=== PATIENT | female | born 1950 | race Caucasian/White ===

== ENCOUNTER 2019-09-12 06:35 | Inpatient (IN) ==
--- NOTE | 2019-09-12 07:21 | Emergency Department Note ---
Lower Extremity Injury HPI General Chief Complaint: Extremity Injury, Lower Stated Complaint: Fall Time Seen by Provider: 09/12/19 06:55 Source: patient Mode of arrival: ambulatory Limitations: no limitations History of Present Illness HPI Narrative: Narrative: 69-year-old female comes in complaining of fall this morning. Has had a previous stroke and has some weakness on the left side. Anyways when she got up to feed her cat, she turned to pivot and her left leg did not want to move well and so she fell onto tile at her house. She was able to pull herself up to a chair but is having excruciating pain in her left hip. Also some pain at her left knee. Her was able to help her some and he brought her in. She denies any other injuries. She denies any recent illness including fever chills nausea vomiting diarrhea trouble urinating trouble breathing. She did not hit her head or lose consciousness. She is not on a blood thinner Related Data Home Medications Medication Instructions Recorded Confirmed ascorbate calcium (vitamin C) 500 1,500 mg PO QDAY tab 12/03/14 09/12/19 mg tablet aspirin 81 mg tablet,delayed 81 mg PO QDAY 12/03/14 09/12/19 release calcium carbonate 600 mg (1,500 1 cap PO DAILY 12/03/14 09/12/19 mg)-vitamin D3 500 unit capsule onabotulinumtoxinA IM 12/03/14 08/27/19 lichawnkdom-gcvrhmqfw-[id number]-hyal 1 tab PO DAILY 12/17/18 09/12/19 750 mg-100 mg-125 mg-1.65 mg tablet lactobacillus combination no.8 3 3,000 mmu cells PO QDAY 12/17/18 09/12/19 billion cell capsule losartan 50 mg tablet 25 mg PO QDAY tab 12/17/18 09/12/19 lutein 25 mg-zeaxanthin 5 mg 1 cap PO QDAY cap 12/17/18 09/12/19 capsule baclofen 20 mg PO .5X/DAY 09/12/19 09/12/19 fluticasone propionate [Flonase 2 spray INTRANASAL QDAY PRN 09/12/19 09/12/19 Allergy Relief] Previous Rx's Medication Instructions Recorded Sa[employer] Dynamic Orthosis #1 ea 10/11/17 massage therapy #6 each NS 10/24/17 triamterene 75 0.5 tab PO QDAY PRN #45 tab 09/24/18 mg-hydrochlorothiazide 50 mg tablet clopidogrel 75 mg tablet 75 mg PO QDAY #90 tab 03/11/19 venlafaxine 75 mg capsule,extended 75 mg PO QAM #90 cap 04/16/19 release 24 hr pantoprazole 40 mg tablet,delayed 40 mg PO QAM #90 tab 06/06/19 release rosuvastatin 5 mg tablet 5 mg PO .qod #45 tab 08/27/19 Allergies Allergy/AdvReac Type Severity Reaction Status Date / Time Penicillins Allergy Unknown As a child Verified 08/27/19 14:04 no intolerances AdvReac Unknown Other Uncoded 08/27/19 14:04 Review of Systems ROS ROS Narrative: Narrative: All systems ED: reviewed and negative except as stated. 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) Left spastic hemiparesis (Chronic) Cerebrovascular accident (CVA) (Chronic) LVH (left ventricular hypertrophy) (Chronic) Anxiety (Chronic) Fatigue (Chronic) Diverticulosis (Chronic) Colon adenoma (Chronic) Elevated CK (Chronic) Upper respiratory tract infection (Acute) Foot drop, left (Chronic) Dyspnea on exertion (Chronic) Weakness (Chronic) Stenosis of middle cerebral artery (Chronic) Spasticity (Chronic) Osteopenia (Chronic) Onychomycosis (Chronic 11/13/13) Muscle spasm (Chronic) Hypertension (Chronic) Hyperlipidemia (Chronic) Hernia, hiatal (Chronic) Hemiplegia as late effect of stroke (Chronic) Gastroesophageal reflux (Chronic) Gait abnormality (Chronic) Flexion contracture of joint of hand (Chronic) Fatty liver (Chronic) Elevated liver function tests (Chronic) Dysphagia (Chronic) Depression (Chronic) Cystocele (Chronic) Corns and callus (Chronic 11/13/13) Contracture of joint of hand (Chronic) Bronchitis (Chronic) Abnormal involuntary movement (Chronic) Medical History Abnormal involuntary movement (Chronic) tremors Achilles tendinitis (Resolved) Anxiety (Chronic) Bronchitis (Chronic) Cerebrovascular accident (CVA) (Chronic) 2010 anterior division of right middle cerebral artery Chest tightness (Resolved) Colon adenoma (Chronic) 01/22/16-5 year follow up Contracture of joint of hand (Chronic) Corns and callus (Chronic 11/13/13) Cystocele (Chronic) Depression (Chronic) Improved Diverticulosis (Chronic) Dysphagia (Chronic) Dyspnea on exertion (Chronic) Mild Elevated CK (Chronic) Elevated liver function tests (Chronic) Fatigue (Chronic) Fatty liver (Chronic) Chronic (non alcoholic) Flexion contracture of joint of hand (Chronic) Left Foot drop, left (Chronic) Gait abnormality (Chronic) Left leg weakness Gastroesophageal reflux (Chronic) Hemiplegia as late effect of stroke (Chronic) Left Hernia, hiatal (Chronic) sliding History of angiography (Resolved) 2010-Cerebral Hoarseness (Chronic) Progressing Hormone replacement therapy (HRT) (Resolved) Hyperlipidemia (Chronic) Severe. Cholesterol dropped from 313 to 170 on rosuvastatin 5 mg a day. Unfortunately she stopped it due to myalgias and muscle weakness in the legs. She is going to try 5 mg every other day. If she stays on that we will check lipid panel in 2 months. Hypertension (Chronic) BP target is a little higher than usual because of the right MCA stenosis. Systolic goal between 125 and 140. Patient monitors at home and is aware of her goal. She will let us know if systolic blood pressure consistently goes above 140 or below 125. Continue losartan 25 mg daily. Hypokalemia (Resolved) [facility] emergency room. Potassium 3.2. Left spastic hemiparesis (Chronic) LVH (left ventricular hypertrophy) (Chronic) Shown on coronary CTA 06/2015. Coronary arteries were otherwise normal Macrocytosis without anemia (Chronic) Muscle spasm (Chronic) LUE Neoplasm of skin (Resolved 03/12/14) Uncertain behavior - Dr Josue Onychomycosis (Chronic 11/13/13) Osteopenia (Chronic) Pneumonia (Resolved) Postmenopausal symptoms (Chronic) Dryness Right middle cerebral artery stroke (Chronic) 2010. Anterior division. Residual left-sided weakness and left upper extremity spasticity. Aspirin, Plavix, statin Systolic blood pressure control goal of 125-140 Spasticity (Chronic) LUE Botox every 3 months with neurology Baclofen 20 mg 6 times per day Statin myopathy (Chronic) Tolerating Crestor low-dose Stenosis of middle cerebral artery (Chronic) 2010- high grade stenosis of anterior division of right middle cerebral artery - angiogram [facility] Tachycardia (Chronic) Nocturnal Weakness (Chronic) 2010-left side post CVA. right lower extremity now seems weaker. Surgical History Abnormal colonoscopy (Resolved) 01/22/16-adenoma & kugzsvcvpua-aquk-kttm follow-up. H/O esophagogastroduodenoscopy (Resolved 09/13/11) two fundic gland polyps; actue esophagitis with up to 5 eosinophils and 10 neutophils; no glandular mucosa identified--gastric polyp; stricture; hiatal hernia History of adenoidectomy (Resolved) History of appendectomy (Resolved) History of breast biopsy (Resolved) Unspecified History of cholecystectomy (Resolved) History of reconstruction of anterior cruciate ligament tear (Resolved) Left History of surgical removal of skin lesion (Resolved 09/20/11) Seborrheic keratosis, pigmented type History of tonsillectomy (Resolved) S/P reduction mammoplasty (Resolved) 08/07/17 Dr [place]. Left side. S/P reduction mammoplasty (Resolved) Left side. Mastopexy right breast. S/P LALITO-BSO (Resolved) Family History Sister Asthma Mother Hypertension Father Malignant neoplasm of prostate Social History Smoking Status: Never smoker Alcohol Intake Frequency: a few times a month Substance Use: does not use Exam Narrative Narrative: Narrative: No acute distress resting comfortably. Normocephalic atraumatic. Conjunctive are clear sclerae white nonicteric. No dysarthria. Looking at her left hip area I do not see any acute abnormality. Palpation of her hip joint and iliac crest area shows mild tenderness. Some pain with active motion of that left hip. Left knee similarly appears normal but she does have some pain with palpation. She had does have sensation in her feet; I do not see any pedal edema. General Limitations: no limitations Course Vital Signs Vital signs: Vital Signs Temperature 97.8 F 09/12/19 06:36 Pulse Rate 103 H 09/12/19 06:36 Respiratory Rate 16 09/12/19 06:36 Blood Pressure 156/72 09/12/19 06:36 Pulse Oximetry (%) 96 09/12/19 06:36 Temperature 97.8 F 09/12/19 06:36 Pulse Rate 100 H 09/12/19 08:06 Respiratory Rate 16 09/12/19 06:36 Blood Pressure 136/67 09/12/19 08:06 Pulse Oximetry (%) 91 09/12/19 08:06 MDM MDM Narrative Medical decision making narrative: Narrative: Fall with injury to left knee and left hip. X-rays were ordered X-rays are negative. However she is having significant pain so Dilaudid and Zofran are ordered. CT scan of the left hip is ordered to further sort out her injury. At her request I also discussed the situation with her son Patient will be checked out to Dr. lewis at shift change. Radiology Data Radiology results reviewed: Yes I reviewed the patient's radiology results. Radiology results narrative: X-rays of the left hip and knee show no acute fracture or dislocation. CT is ordered of the left hip to further sort this out Discharge Plan Patient/Caregiver Discharge Instructions Pt seen by AGRONOMY RESEARCH MANAGER/PA only: No Clinical Impression: Acute pain of left hip, Fall, Acute pain of left knee Patient Disposition: Still a Patient Condition: Fair Follow up with: Leon Medley DO [Primary Care Provider] - Prescriptions: No Action (DME) [employer] Dynamic Orthosis Qty: 1 RF: 0 (DME) massage therapy Qty: 6 RF: 0 triamterene-hydrochlorothiazid 75-50 mg tablet 0.5 tab PO QDAY PRN (Reason: weight gain) Qty: 45 RF: 0 clopidogrel 75 mg tablet 75 mg PO QDAY Qty: 90 RF: 3 venlafaxine 75 mg capsule,extended release 24hr 75 mg PO QAM Qty: 90 RF: 3 pantoprazole 40 mg tablet,delayed release (DR/EC) 40 mg PO QAM Qty: 90 RF: 3 aspirin 81 mg tablet,delayed release (DR/EC) 81 mg PO QDAY RF: 0 ascorbate calcium (vitamin C) 500 mg tablet 1,500 mg PO QDAY RF: 0 Botox IM RF: 0 calcium carbonate-vitamin D3 600 mg(1,500mg) -500 unit capsule 1 cap PO DAILY RF: 0 losartan 50 mg tablet 25 mg PO QDAY RF: 0 Hold Instructions: Doctor's Order lactobacillus combination no.8 3 billion cell capsule 3 billion cell capsule 3,000 mmu cells PO QDAY RF: 0 Glucos Chond Cplx Advanced 750 mg-100 mg- 125 mg-1.65 mg tablet 1 tab PO DAILY RF: 0 lutein-zeaxanthin [Ocuvite Lutein 25] 25-5 mg capsule 1 cap PO QDAY RF: 0 rosuvastatin 5 mg tablet 5 mg PO .qod Qty: 45 RF: 3 baclofen 20 mg tablet 20 mg PO .5X/DAY RF: 0 fluticasone propionate [Flonase Allergy Relief] 50 mcg/actuation spray,suspension 2 spray INTRANASAL QDAY PRN (Reason: Allergy Symptoms) RF: 0
--- NOTE | 2019-09-12 07:58 | XRay Report ---
INDICATION: fall TECHNIQUE: AP pelvis. AP and lateral left hip COMPARISON: None. FINDINGS: Negative pelvis. No acute fracture. Sacrum and sacroiliac joints are unremarkable. There is degenerative disc disease in the lower lumbar spine. No detectable left hip fracture. Femoral head and neck are intact. If clinically indicated CT or MRI scan may be helpful for further evaluation. IMPRESSION: Negative left hip. See above discussion Interpreted and Authenticated by: Leon Mills 09/12/19
--- NOTE | 2019-09-12 07:59 | XRay Report ---
INDICATION: fall TECHNIQUE: AP and crosstable lateral left knee COMPARISON: None FINDINGS:Previous anterior cruciate ligament repair. No acute fracture. There is moderate degenerative disease in the left patellofemoral joint. Medial and lateral femoral tibial joint spaces are within normal limits. No plain film evidence for significant joint effusion. IMPRESSION: No acute fracture Interpreted and Authenticated by: Leon Mills 09/12/19
[2019-09-12] MEDS ORDERED: HYDROmorphone 0.5 MG/0.5 ML SYRINGE IV PRN ×3 (08:08→11:31)
[2019-09-12] MEDS ORDERED: ONDANSETRON 4 MG/2 ML VIAL IV ONE (08:08)
[2019-09-12 08:25] LABS: POC Blood Urea Nitrogen 14 mg/dl (8-23); POC CO2 25 mmol/L (22-30); POC Calcium, Ionized 1.17 mmol/L (1.16-1.32); POC Chloride 102 mmol/L (96-108); POC Creatinine 0.6 mg/dl (0.6-1.1); POC Glucose, Random 114 mg/dL (70-105); POC Potassium 3.4 mmol/L (3.3-5.1); POC Sodium 139 mmol/L (133-145)
[2019-09-12] MEDS ORDERED: ACETAMINOPHEN 325 MG TABLET PO ONE (08:28)
--- NOTE | 2019-09-12 08:47 | Cat Scan Report ---
INDICATION: fall TECHNIQUE: Thin section axial images of the left hip. Sagittal and coronal reformatted images COMPARISON: None. FINDINGS: Subtle nondisplaced left subcapital hip fracture. This is not well-visualized on plain film examination. There is no malalignment. Left acetabulum is negative. Intertrochanteric region of the left hip is negative. Left hemipelvis is negative. IMPRESSION: Nondisplaced left subcapital hip fracture Interpreted and Authenticated by: Leon Mills 09/12/19
--- NOTE | 2019-09-12 09:30 | Emergency Department Note ---
Lower Extremity Injury HPI General Chief Complaint: Extremity Injury, Lower Stated Complaint: Fall Time Seen by Provider: 09/12/19 06:55 Source: patient Mode of arrival: ambulatory Limitations: no limitations History of Present Illness HPI Narrative: Narrative: I took over care of this patient at [address] Geiger. Related Data Home Medications Medication Instructions Recorded Confirmed ascorbate calcium (vitamin C) 500 1,500 mg PO QDAY tab 12/03/14 09/12/19 mg tablet aspirin 81 mg tablet,delayed 81 mg PO QDAY 12/03/14 09/12/19 release calcium carbonate 600 mg (1,500 1 cap PO DAILY 12/03/14 09/12/19 mg)-vitamin D3 500 unit capsule onabotulinumtoxinA IM 12/03/14 08/27/19 [id number]-wabttnclv-[id number]-hyal 1 tab PO DAILY 12/17/18 09/12/19 750 mg-100 mg-125 mg-1.65 mg tablet lactobacillus combination no.8 3 3,000 mmu cells PO QDAY 12/17/18 09/12/19 billion cell capsule losartan 50 mg tablet 25 mg PO QDAY tab 12/17/18 09/12/19 lutein 25 mg-zeaxanthin 5 mg 1 cap PO QDAY cap 12/17/18 09/12/19 capsule baclofen 20 mg PO .5X/DAY 09/12/19 09/12/19 fluticasone propionate [Flonase 2 spray INTRANASAL QDAY PRN 09/12/19 09/12/19 Allergy Relief] Previous Rx's Medication Instructions Recorded SaeboReach Dynamic Orthosis #1 ea 10/11/17 massage therapy #6 each NS 10/24/17 triamterene 75 0.5 tab PO QDAY PRN #45 tab 09/24/18 mg-hydrochlorothiazide 50 mg tablet clopidogrel 75 mg tablet 75 mg PO QDAY #90 tab 03/11/19 venlafaxine 75 mg capsule,extended 75 mg PO QAM #90 cap 04/16/19 release 24 hr pantoprazole 40 mg tablet,delayed 40 mg PO QAM #90 tab 06/06/19 release rosuvastatin 5 mg tablet 5 mg PO .qod #45 tab 08/27/19 Allergies Allergy/AdvReac Type Severity Reaction Status Date / Time Penicillins Allergy Unknown As a child Verified 06/23/20 14:04 Review of Systems ROS ROS Narrative: Narrative: PFSH Narrative Patient History Narrative: Narrative: Medical/Surgical/Family History All Active Problems (Updated 09/12/19 @ 08:12 by Wing Geiger MD) Acute pain of left hip (Acute) Fall (Acute) Acute pain of left knee (Acute) Seborrheic keratoses (Chronic) Maxillary sinusitis, acute (Acute) Macrocytosis without anemia (Chronic) Wound drainage (Chronic) Postmenopausal symptoms (Chronic) Tachycardia (Chronic) Hoarseness (Chronic) 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) Left spastic hemiparesis (Chronic) Cerebrovascular accident (CVA) (Chronic) LVH (left ventricular hypertrophy) (Chronic) Anxiety (Chronic) Fatigue (Chronic) Diverticulosis (Chronic) Colon adenoma (Chronic) Elevated CK (Chronic) Upper respiratory tract infection (Acute) Foot drop, left (Chronic) Dyspnea on exertion (Chronic) Weakness (Chronic) Stenosis of middle cerebral artery (Chronic) Spasticity (Chronic) Osteopenia (Chronic) Onychomycosis (Chronic 11/13/13) Muscle spasm (Chronic) Hypertension (Chronic) Hyperlipidemia (Chronic) Hernia, hiatal (Chronic) Hemiplegia as late effect of stroke (Chronic) Gastroesophageal reflux (Chronic) Gait abnormality (Chronic) Flexion contracture of joint of hand (Chronic) Fatty liver (Chronic) Elevated liver function tests (Chronic) Dysphagia (Chronic) Depression (Chronic) Cystocele (Chronic) Corns and callus (Chronic 11/13/13) Contracture of joint of hand (Chronic) Bronchitis (Chronic) Abnormal involuntary movement (Chronic) Medical History Abnormal involuntary movement (Chronic) tremors Achilles tendinitis (Resolved) Anxiety (Chronic) Bronchitis (Chronic) Cerebrovascular accident (CVA) (Chronic) 2011 anterior division of right middle cerebral artery Chest tightness (Resolved) Colon adenoma (Chronic) 01/22/16-5 year follow up Contracture of joint of hand (Chronic) Corns and callus (Chronic 11/13/13) Cystocele (Chronic) Depression (Chronic) Improved Diverticulosis (Chronic) Dysphagia (Chronic) Dyspnea on exertion (Chronic) Mild Elevated CK (Chronic) Elevated liver function tests (Chronic) Fatigue (Chronic) Fatty liver (Chronic) Chronic (non alcoholic) Flexion contracture of joint of hand (Chronic) Left Foot drop, left (Chronic) Gait abnormality (Chronic) Left leg weakness Gastroesophageal reflux (Chronic) Hemiplegia as late effect of stroke (Chronic) Left Hernia, hiatal (Chronic) sliding History of angiography (Resolved) 2010-Cerebral Hoarseness (Chronic) Progressing Hormone replacement therapy (HRT) (Resolved) Hyperlipidemia (Chronic) Severe. Cholesterol dropped from 313 to 170 on rosuvastatin 5 mg a day. Unfortunately she stopped it due to myalgias and muscle weakness in the legs. She is going to try 5 mg every other day. If she stays on that we will check lipid panel in 2 months. Hypertension (Chronic) BP target is a little higher than usual because of the right MCA stenosis. Systolic goal between 125 and 140. Patient monitors at home and is aware of her goal. She will let us know if systolic blood pressure consistently goes above 140 or below 125. Continue losartan 25 mg daily. Hypokalemia (Resolved) [facility] emergency room. Potassium 3.2. Left spastic hemiparesis (Chronic) LVH (left ventricular hypertrophy) (Chronic) Shown on coronary CTA 06/2015. Coronary arteries were otherwise normal Macrocytosis without anemia (Chronic) Muscle spasm (Chronic) LUE Neoplasm of skin (Resolved 03/12/14) Uncertain behavior - Dr Josue Onychomycosis (Chronic 11/13/13) Osteopenia (Chronic) Pneumonia (Resolved) Postmenopausal symptoms (Chronic) Dryness Right middle cerebral artery stroke (Chronic) 2010. Anterior division. Residual left-sided weakness and left upper extremity spasticity. Aspirin, Plavix, statin Systolic blood pressure control goal of 125-140 Spasticity (Chronic) LUE Botox every 3 months with neurology Baclofen 20 mg 6 times per day Statin myopathy (Chronic) Tolerating Crestor low-dose Stenosis of middle cerebral artery (Chronic) 2010- high grade stenosis of anterior division of right middle cerebral artery - angiogram [facility] Tachycardia (Chronic) Nocturnal Weakness (Chronic) 2010-left side post CVA. right lower extremity now seems weaker. Surgical History Abnormal colonoscopy (Resolved) 01/22/16-adenoma & [id number]-yekj-envd follow-up. H/O esophagogastroduodenoscopy (Resolved 09/13/11) two fundic gland polyps; actue esophagitis with up to 5 eosinophils and 10 neutophils; no glandular mucosa identified--gastric polyp; stricture; hiatal hernia History of adenoidectomy (Resolved) History of appendectomy (Resolved) History of breast biopsy (Resolved) Unspecified History of cholecystectomy (Resolved) History of reconstruction of anterior cruciate ligament tear (Resolved) Left History of surgical removal of skin lesion (Resolved 09/20/11) Seborrheic keratosis, pigmented type History of tonsillectomy (Resolved) S/P reduction mammoplasty (Resolved) 08/07/17 Dr Phoenix. Left side. S/P reduction mammoplasty (Resolved) Left side. Mastopexy right breast. S/P LALITO-BSO (Resolved) Family History Sister Asthma Mother Hypertension Father Malignant neoplasm of prostate Social History Smoking Status: Never smoker Alcohol Intake Frequency: a few times a month Substance Use: does not use Exam Narrative Narrative: Narrative: General Limitations: no limitations Course Vital Signs Vital signs: Vital Signs Temperature 97.8 F 09/12/19 06:36 Pulse Rate 103 H 09/12/19 06:36 Respiratory Rate 16 09/12/19 06:36 Blood Pressure 156/72 09/12/19 06:36 Pulse Oximetry (%) 96 09/12/19 06:36 Temperature 97.8 F 09/12/19 11:11 Pulse Rate 96 H 09/12/19 11:11 Respiratory Rate 16 09/12/19 11:11 Blood Pressure 126/69 09/12/19 11:11 Pulse Oximetry (%) 93 09/12/19 11:11 MDM MDM Narrative Medical decision making narrative: Narrative: On CT scan this patient does have a nondisplaced subcapital femoral neck fracture. Dr. Martinez the patient's son has discussed this with his partner Dr. Sullivan who will do a pinning of this fracture. We will do preop work-up. I did speak with Dr. Rachel the hospitalist and he will admit the patient to the hospital. Lab Data Lab results reviewed: Yes I reviewed the patient's lab results. Result diagrams: 09/12/19 08:16 09/12/19 08:16 Labs: Lab Results 09/12/19 09/12/19 09/12/19 Range/Units 08:16 08:16 08:16 WBC 19.6 H (4.50-11.00) K/mcL RBC 3.98 (3.59-5.38) M/mcL Hgb 12.6 (11.2-15.7) g/dL Hct 39.3 (34.1-44.9) % POC Hct 41.0 (36.0-48.0) % MCV 98.7 (80.0-100.0) fL MCH 31.7 (26.0-34.0) pg MCHC 32.1 (31.0-36.0) g/dL RDW 14.3 (11.5-14.5) % Plt Count 387 (140-440) K/mcL MPV 9.6 (7.4-10.4) fL Gran % 90.3 H (38.0-78.0) % Lymph % (Auto) 3.9 L (15.5-49.0) % Rhea % (Auto) 5.7 (1.0-12.0) % Eos % (Auto) 0 (0.0-7.0) % Baso % (Auto) 0.1 (0.0-2.0) % Gran # 17.66 H (1.80-8.00) K/mcL Lymph # (Auto) 0.77 L (1.50-4.80) K/mcL Rhea # (Auto) 1.12 H (0.10-0.90) K/mcL Eos # (Auto) 0 (0.00-0.70) K/mcL Baso # (Auto) 0.02 (0.00-0.30) K/mcL PT 13.1 (11.9-14.5) sec INR 1.0 (0.9-1.1) POC Sodium 139 (133-145) mmol/L Sodium (133-145) mmol/L POC Potassium 3.4 (3.3-5.1) mmol/L Potassium (3.3-5.1) mmol/L POC Chloride 102 (96-108) mmol/L Chloride (96-108) mmol/L Carbon Dioxide (22-30) mmol/L POC Total CO2 25 (22-30) mmol/L Anion Gap (8-16) POC BUN 14 (8-23) mg/dl BUN (8-23) mg/dl Creatinine (0.6-1.1) mg/dl POC Creatinine 0.6 (0.6-1.1) mg/dl GFR Calculation Glucose (70-105) mg/dL POC Glucose 114 H (70-105) mg/dL Calcium (8.6-10.4) mg/dl POC WB Ioniz Calcium 1.17 (1.16-1.32) mmol/L Total Bilirubin (0.0-1.0) mg/dL AST (0-37) U/l ALT (0-40) U/l Alkaline Phosphatase (39-117) U/L Total Protein (5.9-8.4) gm/dL Albumin (3.2-5.2) gm/dL Globulin (2.2-3.7) gm/dL Albumin/Globulin Ratio (1.0-2.3) Urine Color Urine Appearance Urine pH (5.0-9.0) Ur Specific [place] (1.000-1.035) Urine Protein (NEG) mg/dL Urine Glucose (UA) (NEG) mg/dL Urine Ketones (NEG) mg/dL Urine Occult Blood (<0.03) mg/dL Urine Nitrate (NEG) Urine Bilirubin (NEG) mg/dL Urine Urobilinogen (NEG) mg/dL Ur Leukocyte Esterase (NEG) /uL Urine RBC (0-1) /hpf Urine WBC (0-4) /hpf Ur Squamous Epith Cells (0-4) /hpf Urine Bacteria (0) /hpf Ur Culture Indicated? COVID-19 PCR (NEGATIVE) 09/12/19 09/12/19 09/12/19 Range/Units 08:16 08:50 09:30 WBC (4.50-11.00) K/mcL RBC (3.59-5.38) M/mcL Hgb (11.2-15.7) g/dL Hct (34.1-44.9) % POC Hct (36.0-48.0) % MCV (80.0-100.0) fL MCH (26.0-34.0) pg MCHC (31.0-36.0) g/dL RDW (11.5-14.5) % Plt Count (140-440) K/mcL MPV (7.4-10.4) fL Gran % (38.0-78.0) % Lymph % (Auto) (15.5-49.0) % Rhea % (Auto) (1.0-12.0) % Eos % (Auto) (0.0-7.0) % Baso % (Auto) (0.0-2.0) % Gran # (1.80-8.00) K/mcL Lymph # (Auto) (1.50-4.80) K/mcL Rhea # (Auto) (0.10-0.90) K/mcL Eos # (Auto) (0.00-0.70) K/mcL Baso # (Auto) (0.00-0.30) K/mcL PT (11.9-14.5) sec INR (0.9-1.1) POC Sodium (133-145) mmol/L Sodium 139 (133-145) mmol/L POC Potassium (3.3-5.1) mmol/L Potassium 3.6 (3.3-5.1) mmol/L POC Chloride (96-108) mmol/L Chloride 102 (96-108) mmol/L Carbon Dioxide 24 (22-30) mmol/L POC Total CO2 (22-30) mmol/L Anion Gap 13.0 (8-16) POC BUN (8-23) mg/dl BUN 13 (8-23) mg/dl Creatinine 0.7 (0.6-1.1) mg/dl POC Creatinine (0.6-1.1) mg/dl GFR Calculation 90 Glucose 114 H (70-105) mg/dL POC Glucose (70-105) mg/dL Calcium 9.6 (8.6-10.4) mg/dl POC WB Ioniz Calcium (1.16-1.32) mmol/L Total Bilirubin 0.3 (0.0-1.0) mg/dL AST 21 (0-37) U/l ALT 28 (0-40) U/l Alkaline Phosphatase 72 (39-117) U/L Total Protein 7.1 (5.9-8.4) gm/dL Albumin 4.7 (3.2-5.2) gm/dL Globulin 2.4 (2.2-3.7) gm/dL Albumin/Globulin Ratio 2.0 (1.0-2.3) Urine Color Straw Urine Appearance Clear Urine pH 7.0 (5.0-9.0) Ur Specific [place] 1.006 (1.000-1.035) Urine Protein Neg (NEG) mg/dL Urine Glucose (UA) Negative (NEG) mg/dL Urine Ketones Neg (NEG) mg/dL Urine Occult Blood Neg (<0.03) mg/dL Urine Nitrate Neg (NEG) Urine Bilirubin Neg (NEG) mg/dL Urine Urobilinogen Neg (NEG) mg/dL Ur Leukocyte Esterase Neg (NEG) /uL Urine RBC < 1 (0-1) /hpf Urine WBC 1 (0-4) /hpf Ur Squamous Epith Cells 0 (0-4) /hpf Urine Bacteria 0 (0) /hpf Ur Culture Indicated? No COVID-19 PCR Covid-19 negative (NEGATIVE) Radiology Data Radiology results reviewed: Yes I reviewed the patient's radiology results. Discharge Plan Patient/Caregiver Discharge Instructions Pt seen by [facility]IER/PA only: No Clinical Impression: Acute pain of left hip, Fall, Acute pain of left knee Patient Disposition: Xfer As Inpt ([facility]) Condition: Fair Discharge Date/Time: 09/12/19 11:00
[2019-09-12 09:38] LABS: Basophils # (Auto) 0.02 K/mcL (0.00-0.30); Basophils % (Auto) 0.1 % (0.0-2.0); Eosinophils # (Auto) 0 K/mcL (0.00-0.70); Eosinophils % (Auto) 0 % (0.0-7.0); Granulocytes % (Auto) 90.3 % (38.0-78.0); Hematocrit 39.3 % (34.1-44.9); Hemoglobin 12.6 g/dL (11.2-15.7); Lymphocytes # (Auto) 0.77 K/mcL (1.50-4.80); Lymphocytes % (Auto) 3.9 % (15.5-49.0); Mean Cell Volume 98.7 fL (80.0-100.0); Mean Corpuscular HGB Conc 32.1 g/dL (31.0-36.0); Mean Platelet Volume 9.6 fL (7.4-10.4); Monocytes # (Auto) 1.12 K/mcL (0.10-0.90); Monocytes % (Auto) 5.7 % (1.0-12.0); Platelet Count 387 K/mcL (140-440); RBC 3.98 M/mcL (3.59-5.38); Red Cell Distribution Width 14.3 % (11.5-14.5); WBC 19.6 K/mcL (4.50-11.00)
--- NOTE | 2019-09-12 09:38 | XRay Report ---
INDICATION: pre surgery TECHNIQUE: AP portable upright chest x-ray COMPARISON: Previous examination dated 06/29/2017 FINDINGS: Lungs:Lungs are negative. No focal pulmonary parenchymal infiltrate or mass Heart, vascular:No significant cardiomegaly. Pulmonary vascularity is normal. No pulmonary edema or pulmonary congestion Mediastinum, bobo:No mediastinal widening. No hilar mass Pleura:No pleural fluid. No pleural-based mass or calcification Skeletal:Negative. IMPRESSION: Negative AP portable chest x-ray Interpreted and Authenticated by: Leon Mills 09/12/19
[2019-09-12 09:44] LABS: Prothrombin Time 13.1 sec (11.9-14.5)
[2019-09-12 09:44] LABS: Appearance,Urine CLEAR; Bacteria,Urine 0 /hpf (0); Bilirubin,Urine NEG (NEG); Color,Urine STRAW; Culture Indicated,Urine NO; Glucose,Urine (UA) NEGATIVE (NEG); Ketones,Urine NEG (NEG); Leukocyte Esterase,Urine NEG /uL (NEG); Nitrate,Urine NEG (NEG); Protein,Urine NEG (NEG); Specific Gravity,Urine 1.006 (1.000-1.035); Urine Blood NEG mg/dL (<0.03); Urine RBC < 1 /hpf (0-1); Urine Squamous Epithelial Cell 0 /hpf (0-4); Urine WBC 1 /hpf (0-4); Urobilinogen,Urine NEG (NEG)
[2019-09-12 09:45] LABS: ALT/SGPT 28 U/l (0-40); AST/SGOT 21 U/l (0-37); Albumin 4.7 gm/dL (3.2-5.2); Alkaline Phosphatase 72 U/L (39-117); Bilirubin,Total 0.3 mg/dL (0.0-1.0); Blood Urea Nitrogen 13 mg/dl (8-23); Calcium 9.6 mg/dl (8.6-10.4); Carbon Dioxide 24 mmol/L (22-30); Chloride 102 mmol/L (96-108); Globulin 2.4 gm/dL (2.2-3.7); Glomerular Filtration Rate 90; Glucose 114 mg/dL (70-105)
--- NOTE | 2019-09-12 10:27 | Internal Med History&Physical ---
HPI History of Present Illness Patient information: Note initiated : 09/12/19 at 10:27 am Service Date, if different from initiated Date: [] Patient: Rika Martinez a 69 y/o F admitted on for Fall. Chief Complaint: [] History of present illness: Ms. Martinez is a 69 year old F with a known history of left-sided hemiparesis right MCA CVA/hypertension/HLD who presents to the ER following a fall 3 in the morning when she tripped on tile surface sustaining injury to her left hip. Initial work-up in the ER was consistent with left subcapital hip fracture. Orthopedics was consulted. Hospital service was requested for admission and management of medical issues while patient will undergo operative intervention At the time of evaluation patient is alert and oriented. She denies active distress. Pain well controlled. She denies losing consciousness or lightheadedness dizziness prior to fall. She denies recent hospitalization. She is currently on aspirin Plavix for history of an right MCA CVA 9 years ago with residual deficits left side. She denies diarrhea, fever, chest pain, shortness of breath or recent bleeding. She follows up with PCP Leon Zhou Review of systems 10 point review system was performed and is negative except for ones dicussed above [facility] Medical History Abnormal involuntary movement (Chronic) tremors Achilles tendinitis (Resolved) Anxiety (Chronic) Bronchitis (Chronic) Cerebrovascular accident (CVA) (Chronic) 2010 anterior division of right middle cerebral artery Chest tightness (Resolved) Colon adenoma (Chronic) 01/22/16-5 year follow up Contracture of joint of hand (Chronic) Corns and callus (Chronic 11/13/13) Cystocele (Chronic) Depression (Chronic) Improved Diverticulosis (Chronic) Dysphagia (Chronic) Dyspnea on exertion (Chronic) Mild Elevated CK (Chronic) Elevated liver function tests (Chronic) Fatigue (Chronic) Fatty liver (Chronic) Chronic (non alcoholic) Flexion contracture of joint of hand (Chronic) Left Foot drop, left (Chronic) Gait abnormality (Chronic) Left leg weakness Gastroesophageal reflux (Chronic) Hemiplegia as late effect of stroke (Chronic) Left Hernia, hiatal (Chronic) sliding History of angiography (Resolved) 2010-Cerebral Hoarseness (Chronic) Progressing Hormone replacement therapy (HRT) (Resolved) Hyperlipidemia (Chronic) Severe. Cholesterol dropped from 313 to 170 on rosuvastatin 5 mg a day. Unfortunately she stopped it due to myalgias and muscle weakness in the legs. She is going to try 5 mg every other day. If she stays on that we will check lipid panel in 2 months. Hypertension (Chronic) BP target is a little higher than usual because of the right MCA stenosis. Systolic goal between 125 and 140. Patient monitors at home and is aware of her goal. She will let us know if systolic blood pressure consistently goes above 140 or below 125. Continue losartan 25 mg daily. Hypokalemia (Resolved) [facility] emergency room. Potassium 3.2. Left spastic hemiparesis (Chronic) LVH (left ventricular hypertrophy) (Chronic) Shown on coronary CTA 06/2015. Coronary arteries were otherwise normal Macrocytosis without anemia (Chronic) Muscle spasm (Chronic) LUE Neoplasm of skin (Resolved 03/12/14) Uncertain behavior - Dr Josue Onychomycosis (Chronic 11/13/13) Osteopenia (Chronic) Pneumonia (Resolved) Postmenopausal symptoms (Chronic) Dryness Right middle cerebral artery stroke (Chronic) 2010. Anterior division. Residual left-sided weakness and left upper extremity spasticity. Aspirin, Plavix, statin Systolic blood pressure control goal of 125-140 Spasticity (Chronic) LUE Botox every 3 months with neurology Baclofen 20 mg 6 times per day Statin myopathy (Chronic) Tolerating Crestor low-dose Stenosis of middle cerebral artery (Chronic) 2010- high grade stenosis of anterior division of right middle cerebral artery - angiogram [facility] Tachycardia (Chronic) Nocturnal Weakness (Chronic) 2010-left side post CVA. right lower extremity now seems weaker. Surgical History Abnormal colonoscopy (Resolved) 01/22/16-adenoma & iijaotowrtv-onfn-tjuj follow-up. H/O esophagogastroduodenoscopy (Resolved 09/13/11) two fundic gland polyps; actue esophagitis with up to 5 eosinophils and 10 neutophils; no glandular mucosa identified--gastric polyp; stricture; hiatal hernia History of adenoidectomy (Resolved) History of appendectomy (Resolved) History of breast biopsy (Resolved) Unspecified History of cholecystectomy (Resolved) History of reconstruction of anterior cruciate ligament tear (Resolved) Left History of surgical removal of skin lesion (Resolved 09/20/11) Seborrheic keratosis, pigmented type History of tonsillectomy (Resolved) S/P reduction mammoplasty (Resolved) 08/07/17 Dr Phoenix. Left side. S/P reduction mammoplasty (Resolved) Left side. Mastopexy right breast. S/P LALITO-BSO (Resolved) Family History Sister Asthma Mother Hypertension Father Malignant neoplasm of prostate Social History household members: spouse housing: house lives independently: Yes marital status: education level: college occupational status: retired occupation: teacher other: children 3; grandchildren 2 smoking status: Never smoker alcohol intake frequency: a few times a month substance use type: does not use MEDS/ALLERGIES Home Medications and Allergies Home Medications Medication Instructions Recorded Confirmed Type ascorbate calcium (vitamin C) 500 1,500 mg PO QDAY tab 12/03/14 09/12/19 History mg tablet aspirin 81 mg tablet,delayed 81 mg PO QDAY 12/03/14 09/12/19 History release calcium carbonate 600 mg (1,500 1 cap PO DAILY 12/03/14 09/12/19 History mg)-vitamin D3 500 unit capsule onabotulinumtoxinA IM 12/03/14 08/27/19 History triamterene 75 0.5 tab PO QDAY PRN #45 tab 09/24/18 09/12/19 Rx mg-hydrochlorothiazide 50 mg tablet [id number]-[id number]-[id number]-hyal 1 tab PO DAILY 12/17/18 09/12/19 History 750 mg-100 mg-125 mg-1.65 mg tablet lactobacillus combination no.8 3 3,000 mmu cells PO QDAY 12/17/18 09/12/19 History billion cell capsule losartan 50 mg tablet 25 mg PO QDAY tab 12/17/18 09/12/19 History lutein 25 mg-zeaxanthin 5 mg 1 cap PO QDAY cap 12/17/18 09/12/19 History capsule clopidogrel 75 mg tablet 75 mg PO QDAY #90 tab 03/11/19 09/12/19 Rx venlafaxine 75 mg capsule,extended 75 mg PO QAM #90 cap 04/16/19 09/12/19 Rx release 24 hr pantoprazole 40 mg tablet,delayed 40 mg PO QAM #90 tab 06/06/19 09/12/19 Rx release rosuvastatin 5 mg tablet 5 mg PO .qod #45 tab 08/27/19 09/12/19 Rx baclofen 20 mg PO .5X/DAY 09/12/19 09/12/19 History fluticasone propionate [Flonase 2 spray INTRANASAL QDAY PRN 09/12/19 09/12/19 History Allergy Relief] Allergies Allergy/AdvReac Type Severity Reaction Status Date / Time Penicillins Allergy Unknown As a child Verified 08/27/19 14:04 EXAM Constitutional Vitals: Temp Pulse Resp BP Pulse Ox 97.8 F 100 H 16 125/66 92 09/12/19 06:36 09/12/19 10:15 09/12/19 06:36 09/12/19 10:15 09/12/19 10:15 Alert oriented Head normocephalic Oral cavity dry Eye movement symmetrical No ear nose discharge Neck lymphadenopathy S1-S2 regular rhythm Nonlabored breathing Nondistended abdomen No lymphedema cyanosis clubbing Tenderness left hip on passive range of motion Psych alert cooperative Skin no suspicious lesion Neuro no acute changes, persistent left-sided deficits, normal higher function DATA Data Completed and Pending Labs on day of discharge: Labs from last 24 hours 09/12/19 09/12/19 09/12/19 09:30 08:50 08:16 WBC RBC Hgb Hct POC Hct MCV MCH MCHC RDW Plt Count MPV Gran % Lymph % (Auto) [place] % (Auto) Eos % (Auto) Baso % (Auto) Gran # Lymph # (Auto) [place] # (Auto) Eos # (Auto) Baso # (Auto) PT INR POC Sodium Sodium 139 POC Potassium Potassium 3.6 POC Chloride Chloride 102 Carbon Dioxide 24 POC Total CO2 Anion Gap 13.0 POC BUN BUN 13 Creatinine 0.7 POC Creatinine GFR Calculation 90 Glucose 114 H POC Glucose Calcium 9.6 POC WB Ioniz Calcium Total Bilirubin 0.3 AST 21 ALT 28 Alkaline Phosphatase 72 Total Protein 7.1 Albumin 4.7 Globulin 2.4 Albumin/Globulin Ratio 2.0 Urine Color Straw Urine Appearance Clear Urine pH 7.0 Ur Specific Gill 1.006 Urine Protein Neg Urine Glucose (UA) Negative Urine Ketones Neg Urine Occult Blood Neg Urine Nitrate Neg Urine Bilirubin Neg Urine Urobilinogen Neg Ur Leukocyte Esterase Neg Urine RBC < 1 Urine WBC 1 Ur Squamous Epith Cells 0 Urine Bacteria 0 Ur Culture Indicated? No COVID-19 PCR Pending 09/12/19 09/12/19 09/12/19 08:16 08:16 08:16 WBC 19.6 H RBC 3.98 Hgb 12.6 Hct 39.3 POC Hct 41.0 MCV 98.7 MCH 31.7 MCHC 32.1 RDW 14.3 Plt Count 387 MPV 9.6 Gran % 90.3 H Lymph % (Auto) 3.9 L [place] % (Auto) 5.7 Eos % (Auto) 0 Baso % (Auto) 0.1 Gran # 17.66 H Lymph # (Auto) 0.77 L [place] # (Auto) 1.12 H Eos # (Auto) 0 Baso # (Auto) 0.02 PT 13.1 INR 1.0 POC Sodium 139 Sodium POC Potassium 3.4 Potassium POC Chloride 102 Chloride Carbon Dioxide POC Total CO2 25 Anion Gap POC BUN 14 BUN Creatinine POC Creatinine 0.6 GFR Calculation Glucose POC Glucose 114 H Calcium POC WB Ioniz Calcium 1.17 Total Bilirubin AST ALT Alkaline Phosphatase Total Protein Albumin Globulin Albumin/Globulin Ratio Urine Color Urine Appearance Urine pH Ur Specific Gill Urine Protein Urine Glucose (UA) Urine Ketones Urine Occult Blood Urine Nitrate Urine Bilirubin Urine Urobilinogen Ur Leukocyte Esterase Urine RBC Urine WBC Ur Squamous Epith Cells Urine Bacteria Ur Culture Indicated? COVID-19 PCR A/P Narrative A/P Narrative: * Left hip fracture-orthopedics on board. Continue pain management/keep n.p.o. anticipate surgery later today * Preoperative risk evaluation- Based on [employer] [place] heart association risk stratification patient would be in the high risk category in the setting of prior CVA however there are no modifiable risk factors. Patient is on aspirin Plavix which will be held at this time. She however does not carry history of CAD/CHF/renal failure or insulin-dependent diabetes. Patient would be a great candidate for postoperative rehab. Risk may include intraoperative and immediate postoperative ACS/CVA. I recommend maintaining a map greater than 70 during intraoperative phase and use of capnometry and IS to minimize pulmonary compilations. Additionally surgery and anesthesia specific risks will be addressed by respective care providers during their preoperative evaluations. Patient and family expresses understanding of above risks going into surgery. * History of CVA hold aspirin Plavix for 24 hours. To minimize risk of bleeding * History of left-sided weakness/spasm continue baclofen * Anxiety disorder continue venlafaxine * History of hypertension restart triamterene thiazide, hold ARB until systolics over 140 * GERD continue PPI * Full code Plan * Inpatient admission * Orthopedic consult * Hold aspirin Plavix for 24 hours * Keep n.p.o./pain management * Pre-existing medical condition management home meds except for ARB/aspirin Plavix which will be held for 24 hours * PT OT/nutrition support postoperative Time Spent With Patient Time: Total time spent is greater than 50% in coordination of care (as documented) at patient's floor/unit and/or counseling patient:
[2019-09-12] MEDS ORDERED: ACETAMINOPHEN 650 MG/65 ML BOTTLE IV PRN (11:31)
[2019-09-12] MEDS ORDERED: ONDANSETRON 4 MG ODT TABLET SL PRN (11:31)
[2019-09-12] MEDS ORDERED: FLUTICASONE PROPIONATE SPRAY.NAS NS PRN (11:31)
[2019-09-12] MEDS ORDERED: ONDANSETRON 4 MG/2 ML VIAL IV PRN ×2 (11:31→14:59)
[2019-09-12] MEDS ORDERED: POTASSIUM CHLORIDE 20 MEQ PACKET PO PRN (11:31)
[2019-09-12] MEDS ORDERED: MELATONIN 3 MG TABLET PO PRN (11:31)
[2019-09-12] MEDS ORDERED: BISACODYL 10 MG SUPP.RECT PR PRN (11:31)
[2019-09-12] MEDS ORDERED: MAGNESIUM SULFATE 2 GM/50 ML BAG IV PRN (11:31)
[2019-09-12] MEDS ORDERED: POLYETHYLENE GLYCOL 3350 17 GM PACKET PO PRN (11:31)
[2019-09-12] MEDS ORDERED: TRIAMTERENE/HYDROCHLOROTHIAZID 1 CAP CAPSULE PO PRN (11:44)
[2019-09-12] MEDS ORDERED: SCOPOLAMINE 1 PATCH PATCH TOPICAL PRN (12:00)
[2019-09-12] MEDS ORDERED: SCOPOLAMINE 1 PATCH PATCH TOPICAL ONE (12:16)
[2019-09-12] MEDS ORDERED: VANCOMYCIN 1,000 MG in 0.9 % SODIUM CHLORIDE 250 ML IV SCH (12:45)
[2019-09-12] MEDS ORDERED: VANCOMYCIN 1,500 MG in 0.9 % SODIUM CHLORIDE 500 ML IV SCH (13:00)
[2019-09-12] MEDS ORDERED: ceFAZolin 2 GM in DEXTROSE 5% IN WATER 50 ML IV SCH ×2 (13:15→14:30)
[2019-09-12] MEDS ORDERED: ONDANSETRON 4 MG/2 ML VIAL ONE (13:18)
[2019-09-12] MEDS ORDERED: fentaNYL 100 MCG/2 ML VIAL IV ONE (13:18)
[2019-09-12] MEDS ORDERED: PROPOFOL 200 MG/20 ML VIAL IV ONE (13:18)
[2019-09-12] MEDS ORDERED: KETAMINE HCL 50 MG/ML ML ONE (13:18)
[2019-09-12] MEDS ORDERED: FUROSEMIDE 20 MG/2 ML VIAL IV ONE (13:18)
[2019-09-12] MEDS ORDERED: DEXAMETHASONE 10 MG/ML VIAL ONE (13:18)
[2019-09-12] MEDS ORDERED: ROCURONIUM 10 MG/ML ML IV ONE (13:18)
[2019-09-12] MEDS ORDERED: ePHEDrine 50 MG/ML AMPUL IV ONE (13:18)
[2019-09-12] MEDS ORDERED: PHENYLEPHRINE 10 MG/ML VIAL ONE (13:18)
[2019-09-12] MEDS ORDERED: LIDOCAINE HCL/PF 100 MG/5 ML SYRINGE IV ONE (13:18)
[2019-09-12] MEDS ORDERED: ROPIVACAINE HCL/PF 20 ML VIAL IJ ONE (14:14)
[2019-09-12] MEDS ORDERED: BENZOCAINE/MENTHOL 1 LOZENGE PO PRN (14:23)
--- NOTE | 2019-09-12 14:23 | Brief Operative Note ---
Brief Operative Note Date of procedure: 09/12/19 Pre-op diagnosis: Left nondisplaced subcapital femoral neck fracture Post-op diagnosis: same Procedure: Left hip percutaneous screw fixation of subcapital femoral neck fracture Grafts/Implants: Yes (3 6.5 canulated screws) Anesthesia: GETA Findings: nondisplaced subcapital femoral neck fracture Complications: none Surgeon: Cyril Sullivan Estimated blood loss (cc): 75 Specimens Removed/Pathology: none sent Condition: stable Disposition: PACU
--- NOTE | 2019-09-12 14:46 | Operative Note ---
DATE OF OPERATION: 09/12/2019 PREOPERATIVE DIAGNOSIS: Left hip closed, nondisplaced subcapital femoral neck fracture. POSTOPERATIVE DIAGNOSIS: Left hip closed, nondisplaced subcapital femoral neck fracture. PROCEDURE PERFORMED: Percutaneous screw fixation of the left closed subcapital femoral neck fracture with three 6.5 mm cannulated screws. SURGEON: Cyril Sullivan M.D. STRIP ROLLER: None. ANESTHESIA: General. DRAINS: None. SPECIMENS: None. COMPLICATIONS: None. BLOOD LOSS: 75 mL. POSTOPERATIVE CONDITION: Stable. INDICATIONS FOR SURGERY: This is a 69-year-old female who does have significant history of left-sided hemiparesis status post CVA, who fell early this morning, had severe pain and inability to bear weight. She was taken to the ER. X-rays taken did not show obvious fracture. However, CT scan was obtained which did show a nondisplaced subcapital femoral neck fracture. FINDINGS AT SURGERY: A nondisplaced subcapital femoral neck fracture. Post screw fixation showed satisfactory fracture alignment and hardware in good position. PROCEDURE IN DETAIL: The patient had been seen preoperatively and informed consent had been obtained after discussion of risks and benefits of surgery. Risks including, but not limited to, bleeding; infection; injury to nerves, blood vessels, and other surrounding structures; anesthetic risks; nonunion or malunion of the fracture; failure of hardware fixation; possibility of needing further surgery such as conversion to total hip arthroplasty. She understood these risks and wished to proceed. Correct operative site was marked and then patient was taken to the operating room. General anesthesia was induced. She was carefully positioned onto the fracture table and then the left lower extremity was placed in some gentle traction with internal rotation. The right lower extremity was flexed and abducted and carefully padded. We then brought in fluoroscopy to verify fracture was still aligned well, which it was, so we went ahead and prepped and draped the left hip and lower extremity in normal sterile fashion. Timeout was performed verifying patient name, operative site, and plan. [place] shower curtain drape was placed. Fluoro was brought in to identify our starting point, and a stab incision was made with a scalpel. I used a tonsil down onto bone, and then using fluoroscopic guidance, placed a guide pin for the 6.5 cannulated screws. Careful attention was made to make sure we started not below the lesser trochanter, and this was placed central on the lateral view and along the inferior neck on the AP view. Once we liked our first pin position, I then used the JiaThis drill guide to place a proximal posterior and a proximal anterior guide pin. Once I liked the position of all three guide pins, we then depth-gauged and measured our screw lengths and then drilled the cortex and then placed the three screws. We did get reasonably good fixation with all three screws. I then backed the guide pins back at three different lengths and then took AP and lateral final x-ray images which were saved and printed. We then irrigated copiously with saline after removing the guide pins, and then 2-0 Monocryl was used for subcutaneous and jay for skin. Local anesthetic was injected and then Xeroform and sterile dressing were applied. The patient was then awakened, extubated, and transferred to recovery in satisfactory condition. BJB:leora Job ID: [id number] Doc ID: [id number] Cyril Sullivan MD
--- NOTE | 2019-09-12 14:52 | XRay Report ---
INDICATION: Left hip percutaneous pinning TECHNIQUE: 0.9 minutes fluoroscopy utilized by Dr. Sullivan. 11.7 mGy exposure. Spot films were obtained. FINDINGS: Spot films demonstrate 3 cancellous screws within the left femoral head and neck IMPRESSION: 1. Intraoperative fluoroscopy and spot films 2. Pinning of left hip for treatment of acute subcapital fracture Interpreted and Authenticated by: Leon Mills 09/12/19
[2019-09-12] MEDS ORDERED: MEPERIDINE 25 MG/ML SYRINGE IV PRN (14:59)
[2019-09-12] MEDS ORDERED: ATROPINE SULFATE 0.4 MG/ML VIAL IV PRN (14:59)
[2019-09-12] MEDS ORDERED: NALOXONE HCL 0.4 MG/ML VIAL IV PRN (14:59)
[2019-09-12] MEDS ORDERED: diphenhydrAMINE 50 MG/ML VIAL IV PRN (14:59)
[2019-09-12] MEDS ORDERED: PROMETHAZINE 25 MG/ML VIAL IV PRN (14:59)
[2019-09-12] MEDS ORDERED: ePHEDrine 50 MG/ML AMPUL IV PRN (14:59)
[2019-09-12] MEDS ORDERED: fentaNYL 100 MCG/2 ML VIAL IV PRN (14:59)
[2019-09-12] MEDS ORDERED: METOPROLOL TARTRATE 5 MG/5 ML VIAL IV PRN (14:59)
[2019-09-12] MEDS ORDERED: METHOCARBAMOL 1,000 MG/10 ML VIAL IV PRN (14:59)
[2019-09-12] MEDS ORDERED: ACETAMINOPHEN 1,000 MG/100 ML BOTTLE IV ONE (14:59)
[2019-09-12] MEDS ORDERED: IPRATROPIUM/ALBUTEROL 3 ML AMPUL.NEB NEB PRN (14:59)
--- NOTE | 2019-09-12 15:07 | Consultation ---
DATE OF CONSULTATION: 09/12/2019 REASON FOR CONSULTATION: Left nondisplaced subcapital femoral neck fracture. REQUESTING PHYSICIAN: Sam Geller M.D. CONSULTING PHYSICIAN: Cyril Sullivan M.D. HISTORY: This is a 69-year-old female with a history of left-sided hemiparesis from stroke who sustained a fall earlier this morning injuring her left hip. She was unable to bear weight and was taken to the emergency department. X-rays were taken which did not show obvious fracture, so a CT scan was performed which showed a nondisplaced subcapital femoral neck fracture. She denies any other associated injuries. She finds her pain made worse with movement, better with immobility. PAST MEDICAL HISTORY: Cerebrovascular accident in 2010 with resulting left-sided hemiparesis. She also has gastroesophageal reflux with hiatal hernia, hyperlipidemia, hypertension, left ventricular hypertrophy. PAST SURGICAL HISTORY: Colonoscopies, EGDs, appendectomy, breast biopsy, cholecystectomy, anterior cruciate ligament reconstruction, tonsillectomy with adenoidectomy, reduction mammoplasties, and total abdominal hysterectomy with BSO. MEDICATIONS: 1. Aspirin 81 mg a day. 2. Triamterene-hydrochlorothiazide 75-50 mg. 3. Losartan 25 mg every day. 4. Plavix 75 mg a day. 5. Venlafaxine 75 mg a day. 6. Pantoprazole 40 mg a day. 7. Rosuvastatin 5 mg a day. 8. Baclofen 20 mg half a day. 9. Flonase inhaler. ALLERGIES: PENICILLIN as a child, unknown. SOCIAL HISTORY: She is and lives with her . She is a retired teacher. No tobacco use. Occasional alcohol use. No illicit drug use. FAMILY HISTORY: Positive for mother with hypertension, father with prostate cancer, and a sister with asthma. REVIEW OF SYSTEMS: Negative except per the HPI. PHYSICAL EXAMINATION: VITAL SIGNS ON ADMISSION: Temperature 97.8, pulse 100, respirations 16, blood pressure 125/66, pulse ox 92%. GENERAL: She appears her stated age in no acute distress. She is oriented to person and place. Mood and affect are appropriate. EXTREMITIES: Bilateral upper extremities and bilateral lower extremities show no obvious deformity on inspection other than the left hand is held in a contracted manner. The right-sided upper and lower extremities are normal to range of motion, stability, and strength. The left side is decreased range of motion of both upper and lower extremity with significant pain with range of motion of the left hip. There is no gross instability noted on the left upper or lower extremity and strength is hemiparetic on that side. Skin is intact but there is some ecchymosis just distal to the greater trochanter on the left hip. Pulse is palpable. IMAGING: Her x-ray reviewed shows no obvious fracture. Her CT scan reviewed does show a nondisplaced subcapital femoral neck fracture. IMPRESSION: Left closed nondisplaced subcapital femoral neck fracture in a 69-year-old female who does have a left-sided hemiparesis from a stroke. PLAN: I recommend proceeding with percutaneous screw fixation of the left closed subcapital nondisplaced femoral neck fracture. We will do this as soon as possible. BJEliezer:leora Job ID: [id number] Doc ID: [id number] Cyril Sullivan MD
[2019-09-12] MEDS: BACLOFEN 10 MG TABLET PO SCH ×3 (16:34→20:46)
[2019-09-12] MEDS: 0.9 % SODIUM CHLORIDE 10 ML SYRINGE IV SCH ×3 (16:34→20:49)
[2019-09-12] MEDS: 0.9 % SODIUM CHLORIDE 1,000 ML IV SCH ×2 (16:34→17:08)
[2019-09-12] MEDS: ceFAZolin 1 GM VIAL IV SCH (20:46)
[2019-09-12] MEDS: SIMVASTATIN 20 MG TABLET PO SCH (20:47)
[2019-09-12] MEDS: DOCUSATE SODIUM 100 MG CAPSULE PO SCH (20:48)
[2019-09-12] MEDS: SENNOSIDES/DOCUSATE SODIUM 1 TAB TABLET PO SCH (20:49)
[2019-09-13] MEDS: 0.9 % SODIUM CHLORIDE 1,000 ML IV SCH ×4 (02:11→11:31)
[2019-09-13] MEDS: 0.9 % SODIUM CHLORIDE 10 ML SYRINGE IV SCH ×6 (04:26→21:28)
[2019-09-13] MEDS: ceFAZolin 1 GM VIAL IV SCH (04:26)
[2019-09-13] MEDS: BACLOFEN 10 MG TABLET PO SCH ×5 (07:11→21:23)
[2019-09-13] MEDS: PANTOPRAZOLE 40 MG TABLET PO SCH (07:11)
[2019-09-13 07:17] LABS: Hematocrit 33.2 % (34.1-44.9); Hemoglobin 10.2 g/dL (11.2-15.7); Mean Cell Volume 102.5 fL (80.0-100.0); Mean Corpuscular HGB Conc 30.7 g/dL (31.0-36.0); Mean Platelet Volume 9.6 fL (7.4-10.4); Platelet Count 337 K/mcL (140-440); RBC 3.24 M/mcL (3.59-5.38); Red Cell Distribution Width 15.1 % (11.5-14.5); WBC 10.5 K/mcL (4.50-11.00)
[2019-09-13 07:40] LABS: ALT/SGPT 19 U/l (0-40); AST/SGOT 18 U/l (0-37); Albumin 3.8 gm/dL (3.2-5.2); Albumin/Globulin Ratio 1.8 (1.0-2.3); Alkaline Phosphatase 56 U/L (39-117); Bilirubin,Direct < 0.2 mg/dL (0.0-0.3); Bilirubin,Total 0.2 mg/dL (0.0-1.0); Blood Urea Nitrogen 15 mg/dl (8-23); Calcium 8.4 mg/dl (8.6-10.4); Carbon Dioxide 23 mmol/L (22-30); Chloride 103 mmol/L (96-108); Globulin 2.1 gm/dL (2.2-3.7); Glomerular Filtration Rate 90; Glucose 108 mg/dL (70-105); Lactate Dehydrogenase 242 U/L (94-250); Phosphorous 3.4 mg/dL (2.7-4.5); Triglycerides 89 mg/dl (<150); Uric Acid 4.3 mg/dL (2.5-8.0)
[2019-09-13 08:45] LABS: Anisocytosis 1+ (NONE SEEN); Lymphocytes % 12 % (15-49); Macrocytosis 1+ (NONE SEEN); Monocytes % (Manual) 7 % (1-12); Platelet Estimate NORMAL (NORMAL); RBC Morphology NORMAL (NORMAL); Segmented Neutrophils % 81 % (38-78)
[2019-09-13] MEDS: ASCORBIC ACID 500 MG TABLET PO SCH (09:54)
[2019-09-13] MEDS: CALCIUM W/VIT D3 500 MG TABLET PO SCH (09:55)
[2019-09-13] MEDS: MULTIVIT,THER IRON,CA,FA & MIN 1 TABLET PO SCH (09:55)
[2019-09-13] MEDS: LACTOBACILLUS 1 CAPSULE PO SCH (09:56)
[2019-09-13] MEDS: VENLAFAXINE 75 MG CAP.XL.24H PO SCH (09:56)
[2019-09-13] MEDS: LOSARTAN 25 MG TABLET PO SCH (09:57)
--- NOTE | 2019-09-13 10:12 | Internal Med Progress Note ---
SUBJECTIVE Subjective Patient information: Note initiated : 09/13/19 at 10:12 am Service Date, if different from initiated Date: [] Patient: Rika Martinez 69 y/o F admitted on 09/12/19 for Fall. Chief Complaint: [] Interval history: Narrative: Constitutional Vitals: Vital Signs Temp Pulse Resp BP Pulse Ox 98.4 F 96 H 16 118/64 95 09/13/19 08:00 09/13/19 08:00 09/13/19 08:00 09/13/19 08:00 09/13/19 08:00 Period Temp Pulse Resp BP Sys/Lozano Pulse Ox Last 24 Hr 97.8 F-99 F 85-107 12-21 102-151/56-93 92-100 Intake and Output 09/12/19 09/13/19 09/13/19 21:59 05:59 13:59 Intake Total 1150 1148 Output Total 1601 1650 Balance -451 -502 Weight 86.976 kg Intake & Output: Intake & Output 09/12/19 09/13/19 09/13/19 21:59 05:59 13:59 Intake Total 1150 1148 Output Total 1601 1650 Balance -451 -502 Weight 86.976 kg Intake: IV 150 908 Sodium Chloride 0.9% 1,000 ml @ 908 100 mls/hr IV .Q10H [facility] Rx#: [id number] Ancef 2 gm In Dextrose 5% in 50 Water 50 ml @ 100 mls/hr IV PREOP [facility] Rx#:[id number] Oral 240 IV - Manual Only 1000 Output: Void Amount 1550 1650 # of times incontinent of urine 1 Estimated Blood Loss 50 Other: Urine Appearance Clear Clear Urine Color Pale Pale Urine Odor Normal Normal OBJ DATA Labs CBC & Chem 7: 09/13/19 05:20 09/13/19 05:20 Labs: Abnormal Lab Results 09/13/19 09/13/19 09/12/19 05:20 05:20 08:16 WBC RBC 3.24 L Hgb 10.2 L Hct 33.2 L MCV 102.5 H MCHC 30.7 L RDW 15.1 H Gran % Lymph % (Auto) Gran # Lymph # (Auto) [place] # (Auto) Seg Neutrophils % 81 H Lymphocytes % 12 L Anisocytosis 1+ A Macrocytosis 1+ A Glucose 108 H 114 H POC Glucose Calcium 8.4 L Globulin 2.1 L 09/12/19 09/12/19 08:16 08:16 WBC 19.6 H RBC Hgb Hct MCV MCHC RDW Gran % 90.3 H Lymph % (Auto) 3.9 L Gran # 17.66 H Lymph # (Auto) 0.77 L [place] # (Auto) 1.12 H Seg Neutrophils % Lymphocytes % Anisocytosis Macrocytosis Glucose POC Glucose 114 H Calcium Globulin Meds: Medications Acetaminophen (Tylenol) 650 mg PO Q4-6HP PRN; Protocol PRN Reason: Per Pain Protocol/Fever > 101 Ascorbic Acid (Vitamin C) 1,500 mg PO QDAY [facility] Last Admin: 09/13/19 09:54 Dose: 1,500 mg Documented by: Baclofen (Lioresal) 20 mg PO 5XD [facility] Last Admin: 09/13/19 07:11 Dose: 20 mg Documented by: Bisacodyl (Dulcolax) 10 mg VA Q2-3DAYS PRN PRN Reason: Constipation Calcium/Vitamin D (Calcium W/Vit D3) 500 mg PO DAILY [facility] Last Admin: 09/13/19 09:55 Dose: 500 mg Documented by: Docusate Sodium (Colace) 100 mg PO BID [facility] Last Admin: 09/12/19 20:48 Dose: Not Given Documented by: Fluticasone Propionate (Flonase) 2 spray NS QDAY PRN PRN Reason: Allergy Symptoms Hydromorphone HCl (Dilaudid) 0 mg IV Q4HP PRN; Protocol PRN Reason: Per Pain Protocol Magnesium Sulfate (Magnesium Sulfate) 2 gm in 50 mls @ 50 mls/hr IV UD PRN PRN Reason: MG = or < 1.7 Sodium Chloride (Sodium Chloride 0.9%) 1,000 mls @ 50 mls/hr IV .Q20H [facility] Stop: 09/14/19 23:30 Last Admin: 09/12/19 16:34 Dose: Not Given Documented by: Acetaminophen (Ofirmev) 650 mg in 65 mls @ 130 mls/hr IV Q6HP PRN; Protocol PRN Reason: Per Pain Protocol/Fever > 101 Last Admin: 09/12/19 22:12 Dose: 130 mls/hr Documented by: Sodium Chloride (Sodium Chloride 0.9%) 1,000 mls @ 100 mls/hr IV .Q10H [facility] Last Admin: 09/13/19 02:13 Dose: 100 mls/hr Documented by: Iron Carb/Multivit/[place]/Folic Acid (Multivitamin W/Minerals) 1 tab PO DAILY [facility] Last Admin: 09/13/19 09:55 Dose: 1 tab Documented by: Lactobacillus Rhamnosus (Culturelle) 1 cap PO QDAY [facility] Last Admin: 09/13/19 09:56 Dose: 1 cap Documented by: Losartan Potassium (Cozaar) 25 mg PO DAILY [facility] Last Admin: 09/13/19 09:57 Dose: 25 mg Documented by: Melatonin (Melatonin 3mg Tablet) 3 mg PO HSP PRN PRN Reason: Insomnia Ondansetron HCl (Zofran Odt) 4 mg SL Q4-6HP PRN; Protocol PRN Reason: Nausea And Vomiting Ondansetron HCl (Zofran) 4 mg IV Q4-6HP PRN; Protocol PRN Reason: Nausea And Vomiting Oxycodone/Acetaminophen (Percocet 5-325 Mg) 0 tab PO Q4HP PRN; Protocol PRN Reason: Per Pain Protocol Pantoprazole Sodium (Protonix) 40 mg PO QAMAC [facility] Last Admin: 09/13/19 07:11 Dose: 40 mg Documented by: Polyethylene Glycol (Miralax) 17 gm PO DAILYP PRN PRN Reason: Constipation Potassium Chloride (Klor-Con) 40 meq PO DAILYP PRN PRN Reason: K+ < 3.5 Scopolamine (Transderm-Scop) 1 patch TOPICAL PREOP PRN PRN Reason: Nausea And Vomiting Senna/Docusate Sodium (Senna Plus Tablet) 1 tab PO HS [facility] Last Admin: 09/12/19 20:49 Dose: Not Given Documented by: Simvastatin (Zocor) 20 mg PO Q48@2100 [facility] Last Admin: 09/12/19 20:47 Dose: 20 mg Documented by: Sodium Chloride (Saline Flush) 10 ml IV Q8 [facility] Last Admin: 09/13/19 04:26 Dose: 10 ml Documented by: Sodium Chloride (Saline Flush) 10 ml IV Q12 [facility] Last Admin: 09/12/19 20:47 Dose: 10 ml Documented by: Throat Lozenges (Cepacol) 1 lozenge PO PRN PRN PRN Reason: Sore Throat Last Admin: 09/12/19 22:12 Dose: 1 lozenge Documented by: Triamterene/HCTZ (Maxzide 25) 1 cap PO DAILYP PRN PRN Reason: weight gain Venlafaxine HCl (E[facility] Xr) [facility] Last Admin: 09/13/19 09:56 Dose: 75 mg Documented by: A/P Time Spent With Patient Time: Total time spent is greater than 50% in coordination of care (as documented) at patient's floor/unit and/or counseling patient: QUALITY VTE Deep Vein Thrombosis/Pulmonary Embolism Present on Admission: No
--- NOTE | 2019-09-13 10:19 | Internal Med Progress Note ---
SUBJECTIVE Subjective Patient information: Note initiated : 09/13/19 at 10:14 am Service Date, if different from initiated Date: [] Patient: Rika Martinez a 69 y/o F admitted on 09/12/19 for Fall. Chief Complaint: [] Interval history: Narrative: History of present illness: Ms. Martinez is a 69 year old F with a known history of left-sided hemiparesis right MCA CVA/hypertension/HLD who presents to the ER following a fall 3 in the morning when she tripped on tile surface sustaining injury to her left hip. Initial work-up in the ER was consistent with left subcapital hip fracture. Orthopedics was consulted. Hospital service was requested for admission and management of medical issues while patient will undergo operative intervention At the time of evaluation patient is alert and oriented. She denies active distress. Pain well controlled. She denies losing consciousness or lightheadedness dizziness prior to fall. She denies recent hospitalization. She is currently on aspirin Plavix for history of an right MCA CVA 9 years ago with residual deficits left side. She denies diarrhea, fever, chest pain, shortness of breath or recent bleeding. She follows up with PCP Leon Zhou 09/12-patient doing well. No overnight events. No concerns per staff. No fever chills nausea vomiting. Pain good control. No significant postoperative site swelling. Hemoglobin stable at 10.2. Restart aspirin Plavix today. Constitutional Vitals: Vital Signs Temp Pulse Resp BP Pulse Ox 98.4 F 96 H 16 118/64 95 09/13/19 08:00 09/13/19 08:00 09/13/19 08:00 09/13/19 08:00 09/13/19 08:00 Period Temp Pulse Resp BP Sys/Lozano Pulse Ox Last 24 Hr 97.8 F-99 F 85-107 12-21 102-151/56-93 92-100 Intake and Output 09/12/19 09/13/19 09/13/19 21:59 05:59 13:59 Intake Total 1150 1148 Output Total 1601 1650 Balance -451 -502 Weight 86.976 kg Alert oriented no anxiety Nonlabored breathing No evident pallor Intake & Output: Intake & Output 09/12/19 09/13/19 09/13/19 21:59 05:59 13:59 Intake Total 1150 1148 Output Total 1601 1650 Balance -451 -502 Weight 86.976 kg Intake: IV 150 908 Sodium Chloride 0.9% 1,000 ml @ 908 100 mls/hr IV .Q10H [facility] Rx#: [id number] Ancef 2 gm In Dextrose 5% in 50 Water 50 ml @ 100 mls/hr IV PREOP [facility] Rx#:[id number] Oral 240 IV - Manual Only 1000 Output: Void Amount 1550 1650 # of times incontinent of urine 1 Estimated Blood Loss 50 Other: Urine Appearance Clear Clear Urine Color Pale Pale Urine Odor Normal Normal OBJ DATA Labs CBC & Chem 7: 09/13/19 05:20 09/13/19 05:20 Labs: Abnormal Lab Results 09/13/19 09/13/19 09/12/19 05:20 05:20 08:16 WBC RBC 3.24 L Hgb 10.2 L Hct 33.2 L MCV 102.5 H MCHC 30.7 L RDW 15.1 H Gran % Lymph % (Auto) Gran # Lymph # (Auto) [place] # (Auto) Seg Neutrophils % 81 H Lymphocytes % 12 L Anisocytosis 1+ A Macrocytosis 1+ A Glucose 108 H 114 H POC Glucose Calcium 8.4 L Globulin 2.1 L 09/12/19 09/12/19 08:16 08:16 WBC 19.6 H RBC Hgb Hct MCV MCHC RDW Gran % 90.3 H Lymph % (Auto) 3.9 L Gran # 17.66 H Lymph # (Auto) 0.77 L [place] # (Auto) 1.12 H Seg Neutrophils % Lymphocytes % Anisocytosis Macrocytosis Glucose POC Glucose 114 H Calcium Globulin Meds: Medications Acetaminophen (Tylenol) 650 mg PO Q4-6HP PRN; Protocol PRN Reason: Per Pain Protocol/Fever > 101 Ascorbic Acid (Vitamin C) 1,500 mg PO QDAY [facility] Last Admin: 09/13/19 09:54 Dose: 1,500 mg Documented by: Baclofen (Lioresal) 20 mg PO 5XD [facility] Last Admin: 09/13/19 07:11 Dose: 20 mg Documented by: Bisacodyl (Dulcolax) 10 mg HI Q2-3DAYS PRN PRN Reason: Constipation Calcium/Vitamin D (Calcium W/Vit D3) 500 mg PO DAILY [facility] Last Admin: 09/13/19 09:55 Dose: 500 mg Documented by: Docusate Sodium (Colace) 100 mg PO BID [facility] Last Admin: 09/12/19 20:48 Dose: Not Given Documented by: Fluticasone Propionate (Flonase) 2 spray NS QDAY PRN PRN Reason: Allergy Symptoms Hydromorphone HCl (Dilaudid) 0 mg IV Q4HP PRN; Protocol PRN Reason: Per Pain Protocol Magnesium Sulfate (Magnesium Sulfate) 2 gm in 50 mls @ 50 mls/hr IV UD PRN PRN Reason: MG = or < 1.7 Sodium Chloride (Sodium Chloride 0.9%) 1,000 mls @ 50 mls/hr IV .Q20H [facility] Stop: 09/14/19 23:30 Last Admin: 09/12/19 16:34 Dose: Not Given Documented by: Acetaminophen (Ofirmev) 650 mg in 65 mls @ 130 mls/hr IV Q6HP PRN; Protocol PRN Reason: Per Pain Protocol/Fever > 101 Last Admin: 09/12/19 22:12 Dose: 130 mls/hr Documented by: Sodium Chloride (Sodium Chloride 0.9%) 1,000 mls @ 100 mls/hr IV .Q10H [facility] Last Admin: 09/13/19 02:13 Dose: 100 mls/hr Documented by: Iron Carb/Multivit/[place]/Folic Acid (Multivitamin W/Minerals) 1 tab PO DAILY [facility] Last Admin: 09/13/19 09:55 Dose: 1 tab Documented by: Lactobacillus Rhamnosus (Culturelle) 1 cap PO QDAY [facility] Last Admin: 09/13/19 09:56 Dose: 1 cap Documented by: Losartan Potassium (Cozaar) 25 mg PO DAILY [facility] Last Admin: 09/13/19 09:57 Dose: 25 mg Documented by: Melatonin (Melatonin 3mg Tablet) 3 mg PO HSP PRN PRN Reason: Insomnia Ondansetron HCl (Zofran Odt) 4 mg SL Q4-6HP PRN; Protocol PRN Reason: Nausea And Vomiting Ondansetron HCl (Zofran) 4 mg IV Q4-6HP PRN; Protocol PRN Reason: Nausea And Vomiting Oxycodone/Acetaminophen (Percocet 5-325 Mg) 0 tab PO Q4HP PRN; Protocol PRN Reason: Per Pain Protocol Pantoprazole Sodium (Protonix) 40 mg PO QAMAC [facility] Last Admin: 09/13/19 07:11 Dose: 40 mg Documented by: Polyethylene Glycol (Miralax) 17 gm PO DAILYP PRN PRN Reason: Constipation Potassium Chloride (Klor-Con) 40 meq PO DAILYP PRN PRN Reason: K+ < 3.5 Scopolamine (Transderm-Scop) 1 patch TOPICAL PREOP PRN PRN Reason: Nausea And Vomiting Senna/Docusate Sodium (Senna Plus Tablet) 1 tab PO HS [facility] Last Admin: 09/12/19 20:49 Dose: Not Given Documented by: Simvastatin (Zocor) 20 mg PO Q48@2100 [facility] Last Admin: 09/12/19 20:47 Dose: 20 mg Documented by: Sodium Chloride (Saline Flush) 10 ml IV Q8 [facility] Last Admin: 09/13/19 04:26 Dose: 10 ml Documented by: Sodium Chloride (Saline Flush) 10 ml IV Q12 [facility] Last Admin: 09/12/19 20:47 Dose: 10 ml Documented by: Throat Lozenges (Cepacol) 1 lozenge PO PRN PRN PRN Reason: Sore Throat Last Admin: 09/12/19 22:12 Dose: 1 lozenge Documented by: Triamterene/HCTZ (Maxzide 25) 1 cap PO DAILYP PRN PRN Reason: weight gain Venlafaxine HCl (Effexor Xr) 75 mg PO QAM [facility] Last Admin: 09/13/19 09:56 Dose: 75 mg Documented by: A/P Narrative A/P Narrative: * Left hip fracture-postop day 1 managed by orthopedics * Postop pain well controlled * History of CVA restart aspirin Plavix * Recurrent left upper extremity spasm following CVA continue baclofen * Anxiety disorder continue venlafaxine * History of hypertension continue triamterene thiazide, restart ARB * GERD continue PPI * Full code Plan * Restart aspirin Plavix antihypertensives * Postop PT OT * Pre-existing medical condition management home meds except for ARB/aspirin Plavix which will be held for 24 hours * Case management coordinate SNF transfer Time Spent With Patient Time: Total time spent is greater than 50% in coordination of care (as documented) at patient's floor/unit and/or counseling patient: QUALITY VTE Deep Vein Thrombosis/Pulmonary Embolism Present on Admission: No
--- NOTE | 2019-09-13 10:43 | Discharge Summary ---
Discharge Provider Provider Patient information: Note initiated : 09/13/19 at 10:40 am Service Date, if different from initiated Date: [] Patient: Rika Martinez 69 y/o F admitted on 09/12/19 for Fall. Chief Complaint: [hip pain] 69 y/o F fell injured left hip. Unable to bear weight, went to ER and CT showed nondisplaced subcapital femoral neck fracture. Date of admission: 09/12/19 10:59 Discharge date: 09/13/19 Primary care physician: Leon Medley DO Consults: 09/12/19 Consult to Physician [CONS] Stat Comment: Consulting Provider: Del Cavanaugh Reason For Exam: Physician to Consult Consult to Physician [CONS] Stat Comment: Consulting Provider: Cyril Sullivan Reason For Exam: Physician to Consult COURSE Hospital Course Discharge diagnosis: femoral neck fracture Time Spent with Patient Time attestation: Total time spent providing and/or coordinating discharge services: Physical Examination Exam Clean and dry: Yes Weight bearing status: as tolerated DC Instructions-General Patient Instructions Dressing Care: May shower in 2 days and Aquacel Ag - leave on for 5 days (Place POD#2) Discharge Plan Patient/Caregiver Discharge Instructions Activity: increase activity as tolerated Diet: Regular Diet Prescriptions: New oxycodone-acetaminophen 5-325 mg Tablet 1 tab PO Q4HP PRN (Reason: Per Pain Protocol) Qty: 60 RF: 0 No Action triamterene-hydrochlorothiazid 75-50 mg tablet 0.5 tab PO QDAY PRN (Reason: weight gain) Qty: 45 RF: 0 clopidogrel 75 mg tablet 75 mg PO QDAY Qty: 90 RF: 3 venlafaxine 75 mg capsule,extended release 24hr 75 mg PO QAM Qty: 90 RF: 3 pantoprazole 40 mg tablet,delayed release (DR/EC) 40 mg PO QAM Qty: 90 RF: 3 aspirin 81 mg tablet,delayed release (DR/EC) 81 mg PO QDAY RF: 0 ascorbate calcium (vitamin C) 500 mg tablet 1,500 mg PO QDAY RF: 0 Botox IM RF: 0 calcium carbonate-vitamin D3 600 mg(1,500mg) -500 unit capsule 1 cap PO DAILY RF: 0 losartan 50 mg tablet 25 mg PO QDAY RF: 0 Hold Instructions: Doctor's Order lactobacillus combination no.8 3 billion cell capsule 3 billion cell capsule 3,000 mmu cells PO QDAY RF: 0 Glucos Chond Cplx Advanced 750 mg-100 mg- 125 mg-1.65 mg tablet 1 tab PO DAILY RF: 0 lutein-zeaxanthin [Ocuvite Lutein 25] 25-5 mg capsule 1 cap PO QDAY RF: 0 rosuvastatin 5 mg tablet 5 mg PO .qod Qty: 45 RF: 3 baclofen 20 mg tablet 20 mg PO .5X/DAY RF: 0 fluticasone propionate [Flonase Allergy Relief] 50 mcg/actuation spray,suspension 2 spray INTRANASAL QDAY PRN (Reason: Allergy Symptoms) RF: 0 Other Ambulatory Orders: Physical Therapy DC - General (Routine) Location: None Selected Ordered By: Cyril Sullivan Shower Seat/Bench Discharge order (ONCE) Location: None Selected Ordered By: Cyril Sullivan Follow Up Plan Follow up with: Leon Medley DO [Primary Care Provider] - Cyril Sullivan MD [Physician] - Patient Disposition: Home, Self-Care Prognosis: Fair Rehab Potential: Fair Discharge Orders: Discharge Order (Routine); Ordered 09/13/19 Ordered By: Cyril Sullivan Pending Pending Pending: Resuscitation Status Full Code Diet Regular Diet Start MonSep 11 1425 Ascorbic Acid (Vitamin C) 1,500 mg PO QDAY [facility] Last Admin: 09/13/19 09:54 Dose: 1,500 mg Documented by: COLLIN Baclofen (Lioresal) 20 mg PO 5XD [facility] Last Admin: 09/13/19 07:11 Dose: 20 mg Documented by: Admin: 09/12/19 20:46 Dose: 20 mg Documented by: Admin: 09/12/19 16:37 Dose: 20 mg Documented by: Admin: 09/12/19 16:34 Dose: Not Given Documented by: WILLIAM Calcium/Vitamin D (Calcium W/Vit D3) 500 mg PO DAILY [facility] Last Admin: 09/13/19 09:55 Dose: 500 mg Documented by: COLLIN Docusate Sodium (Colace) 100 mg PO BID [facility] Last Admin: 09/12/19 20:48 Dose: Not Given Documented by: ETTA Sodium Chloride (Sodium Chloride 0.9%) 1,000 mls @ 50 mls/hr IV .Q20H [facility] Stop: 09/14/19 23:30 Last Admin: 09/12/19 16:34 Dose: Not Given Documented by: WILLIAM Acetaminophen (Ofirmev) 650 mg in 65 mls @ 130 mls/hr IV Q6HP PRN; Protocol PRN Reason: Per Pain Protocol/Fever > 101 Last Admin: 09/12/19 22:12 Dose: 130 mls/hr Documented by: ETTA Sodium Chloride (Sodium Chloride 0.9%) 1,000 mls @ 100 mls/hr IV .Q10H [facility] Last Admin: 09/13/19 02:13 Dose: 100 mls/hr Documented by: Infusion: 09/13/19 02:13 Dose: 100 mls/hr Documented by: Admin: 09/12/19 17:08 Dose: 100 mls/hr Documented by: WILLIAM Iron Carb/Multivit/Oxly/Folic Acid (Multivitamin W/Minerals) 1 tab PO DAILY [facility] Last Admin: 09/13/19 09:55 Dose: 1 tab Documented by: COLLIN Lactobacillus Rhamnosus (Culturelle) 1 cap PO QDAY [facility] Last Admin: 09/13/19 09:56 Dose: 1 cap Documented by: COLLIN Losartan Potassium (Cozaar) 25 mg PO DAILY [facility] Last Admin: 09/13/19 09:57 Dose: 25 mg Documented by: COLLIN Pantoprazole Sodium (Protonix) 40 mg PO QAMAC [facility] Last Admin: 09/13/19 07:11 Dose: 40 mg Documented by: COLLIN Senna/Docusate Sodium (Senna Plus Tablet) 1 tab PO HS [facility] Last Admin: 09/12/19 20:49 Dose: Not Given Documented by: ETTA Simvastatin (Zocor) 20 mg PO Q48@2100 [facility] Last Admin: 09/12/19 20:47 Dose: 20 mg Documented by: ETTA Sodium Chloride (Saline Flush) 10 ml IV Q8 [facility] Last Admin: 09/13/19 04:26 Dose: 10 ml Documented by: Admin: 09/12/19 20:49 Dose: Not Given Documented by: Admin: 09/12/19 16:34 Dose: Not Given Documented by: SHILDERBRA Sodium Chloride (Saline Flush) 10 ml IV Q12 [facility] Last Admin: 09/12/19 20:47 Dose: 10 ml Documented by: ETTA Throat Lozenges (Cepacol) 1 lozenge PO PRN PRN PRN Reason: Sore Throat Last Admin: 09/12/19 22:12 Dose: 1 lozenge Documented by: ETTA Venlafaxine HCl (Effexor Xr) 75 mg PO QAM [facility] Last Admin: 09/13/19 09:56 Dose: 75 mg Documented by: COLLIN Shift Summary 09/13/19 03:34 Shift Summary by Kaylie [facility] [place]. Up with FWW and SBA, L- hip dressing is CDI. IV Tylenol only thing given for pain. HX of stroke with Left deficits. Very sweet and kind. Patient fell at home in bathroom at night and fx left hip. NS @ 100. AV boot in place. Currently on 2L NC- does not wear O2 at home. Will update at [facility] Initialized on 09/13/19 03:34 - END OF NOTE
[2019-09-13] MEDS: DOCUSATE SODIUM 100 MG CAPSULE PO SCH ×2 (10:56→21:26)
[2019-09-13] MEDS: ACETAMINOPHEN 325 MG TABLET PO PRN (21:25)
[2019-09-13] MEDS: SENNOSIDES/DOCUSATE SODIUM 1 TAB TABLET PO SCH (21:28)
[2019-09-14] MEDS: ACETAMINOPHEN 325 MG TABLET PO PRN ×4 (05:06→20:04)
[2019-09-14] MEDS: 0.9 % SODIUM CHLORIDE 10 ML SYRINGE IV SCH ×4 (05:08→20:05)
[2019-09-14 06:51] LABS: Hematocrit 30.9 % (34.1-44.9); Hemoglobin 9.6 g/dL (11.2-15.7); Mean Corpuscular HGB Conc 31.1 g/dL (31.0-36.0); Mean Platelet Volume 9.8 fL (7.4-10.4); Platelet Count 287 K/mcL (140-440); RBC 3.06 M/mcL (3.59-5.38); Red Cell Distribution Width 15.2 % (11.5-14.5); WBC 6.8 K/mcL (4.50-11.00)
[2019-09-14 07:20] LABS: ALT/SGPT 18 U/l (0-40); AST/SGOT 16 U/l (0-37); Albumin 3.5 gm/dL (3.2-5.2); Albumin/Globulin Ratio 1.8 (1.0-2.3); Alkaline Phosphatase 50 U/L (39-117); Bilirubin,Direct < 0.2 mg/dL (0.0-0.3); Bilirubin,Total 0.3 mg/dL (0.0-1.0); Blood Urea Nitrogen 17 mg/dl (8-23); Calcium 8.3 mg/dl (8.6-10.4); Carbon Dioxide 24 mmol/L (22-30); Chloride 105 mmol/L (96-108); Globulin 1.9 gm/dL (2.2-3.7); Glomerular Filtration Rate 90; Glucose 90 mg/dL (70-105); Lactate Dehydrogenase 209 U/L (94-250); Phosphorous 3.2 mg/dL (2.7-4.5); Triglycerides 97 mg/dl (<150); Uric Acid 4.2 mg/dL (2.5-8.0)
[2019-09-14] MEDS: BACLOFEN 10 MG TABLET PO SCH ×5 (08:22→20:02)
[2019-09-14] MEDS: PANTOPRAZOLE 40 MG TABLET PO SCH (08:22)
[2019-09-14] MEDS: 0.9 % SODIUM CHLORIDE 1,000 ML IV SCH ×3 (08:28→10:17)
[2019-09-14] MEDS: LOSARTAN 25 MG TABLET PO SCH (10:06)
[2019-09-14] MEDS: CLOPIDOGREL 75 MG TABLET PO SCH (10:07)
[2019-09-14] MEDS: ASCORBIC ACID 500 MG TABLET PO SCH (10:07)
[2019-09-14] MEDS: VENLAFAXINE 75 MG CAP.XL.24H PO SCH (10:07)
[2019-09-14] MEDS: GLUCOSAMINE/CHONDROITIN SULF A 1 CAP CAPSULE PO SCH (10:07)
[2019-09-14] MEDS: CALCIUM W/VIT D3 500 MG TABLET PO SCH (10:07)
[2019-09-14] MEDS: VIT A,C & E/LUTEIN/MINERALS TABLET PO SCH (10:07)
[2019-09-14] MEDS: LACTOBACILLUS 1 CAPSULE PO SCH (10:07)
[2019-09-14] MEDS: MULTIVIT,THER IRON,CA,FA & MIN 1 TABLET PO SCH (10:07)
[2019-09-14] MEDS: ASPIRIN 81 MG TAB.CHEW PO SCH (10:08)
[2019-09-14] MEDS: DOCUSATE SODIUM 100 MG CAPSULE PO SCH ×2 (10:08→20:05)
--- NOTE | 2019-09-14 10:24 | Internal Med Progress Note ---
SUBJECTIVE Subjective Patient information: Note initiated : 09/14/19 at 10:21 am Service Date, if different from initiated Date: [] Patient: Rika Martinez a 69 y/o F admitted on 09/12/19 for Fall. History of present illness: Ms. Martinez is a 69 year old F with a known history of left-sided hemiparesis right MCA CVA/hypertension/HLD who presents to the ER following a fall 3 in the morning when she tripped on tile surface sustaining injury to her left hip. Initial work-up in the ER was consistent with left subcapital hip fracture. Orthopedics was consulted. Hospital service was requested for admission and management of medical issues while patient will undergo operative intervention At the time of evaluation patient is alert and oriented. She denies active distress. Pain well controlled. She denies losing consciousness or lightheadedness dizziness prior to fall. She denies recent hospitalization. She is currently on aspirin Plavix for history of an right MCA CVA 9 years ago with residual deficits left side. She denies diarrhea, fever, chest pain, shortness of breath or recent bleeding. She follows up with PCP Leon Zhou 09/12-patient doing well. No overnight events. No concerns per staff. No fever chills nausea vomiting. Pain good control. No significant postoperative site swelling. Hemoglobin stable at 10.2. Restart aspirin Plavix today. 09/13 pain good control. No overnight events. No concerns per staff. On home medications. Anticipate discharge to SNF on Monday. Case management coordinating. Constitutional Vitals: Vital Signs Temp Pulse Resp BP Pulse Ox 98.2 F 92 H 16 131/77 94 09/14/19 08:30 09/14/19 08:30 09/14/19 08:30 09/14/19 08:30 09/14/19 08:30 Period Temp Pulse Resp BP Sys/Lozano Pulse Ox Last 24 Hr 98.2 F-99.0 F 75-104 16-18 111-133/55-77 85-95 Intake and Output 09/13/19 09/14/19 09/14/19 21:59 05:59 13:59 Intake Total 540 240 Output Total 350 900 600 Balance 190 -900 -360 Weight 90.718 kg Alert No anxiety Nonlabored breathing No pallor Intake & Output: Intake & Output 09/13/19 09/14/19 09/14/19 21:59 05:59 13:59 Intake Total 540 240 Output Total 350 900 600 Balance 190 -900 -360 Weight 90.718 kg Intake: Oral 540 240 Output: Void Amount 350 900 600 Other: Meal Dinner Percent of Meal Consumed 100% 100% Feeding Ability Independent Urine Appearance Clear Urine Color Dark Yellow Urine Odor Normal # Voids 1 # Bowel Movements 0 OBJ DATA Labs CBC & Chem 7: 09/14/19 05:10 09/14/19 05:10 Labs: Abnormal Lab Results 09/14/19 09/14/19 09/13/19 05:10 05:10 05:20 WBC RBC 3.06 L Hgb 9.6 L Hct 30.9 L MCV 101.0 H MCHC RDW 15.2 H Gran % Lymph % (Auto) Gran # Lymph # (Auto) [place] # (Auto) Seg Neutrophils % Lymphocytes % Anisocytosis Macrocytosis Glucose 108 H POC Glucose Calcium 8.3 L 8.4 L Total Protein 5.4 L Globulin 1.9 L 2.1 L 09/13/19 09/12/19 09/12/19 05:20 08:16 08:16 WBC 19.6 H RBC 3.24 L Hgb 10.2 L Hct 33.2 L MCV 102.5 H MCHC 30.7 L RDW 15.1 H Gran % 90.3 H Lymph % (Auto) 3.9 L Gran # 17.66 H Lymph # (Auto) 0.77 L [place] # (Auto) 1.12 H Seg Neutrophils % 81 H Lymphocytes % 12 L Anisocytosis 1+ A Macrocytosis 1+ A Glucose 114 H POC Glucose Calcium Total Protein Globulin 09/12/19 08:16 WBC RBC Hgb Hct MCV MCHC RDW Gran % Lymph % (Auto) Gran # Lymph # (Auto) [place] # (Auto) Seg Neutrophils % Lymphocytes % Anisocytosis Macrocytosis Glucose POC Glucose 114 H Calcium Total Protein Globulin Meds: Medications Acetaminophen (Tylenol) 650 mg PO Q4-6HP PRN; Protocol PRN Reason: Per Pain Protocol/Fever > 101 Last Admin: 09/14/19 10:12 Dose: 650 mg Documented by: Ascorbic Acid (Vitamin C) 1,500 mg PO QDAY [facility] Last Admin: 09/14/19 10:07 Dose: 1,500 mg Documented by: Aspirin (Aspirin) 81 mg PO DAILY [facility] Last Admin: 09/14/19 10:08 Dose: 81 mg Documented by: Baclofen (Lioresal) 20 mg PO 5XD [facility] Last Admin: 09/14/19 08:22 Dose: 20 mg Documented by: Bisacodyl (Dulcolax) 10 mg [place] Q2-3DAYS PRN PRN Reason: Constipation Calcium/Vitamin D (Calcium W/Vit D3) 500 mg PO DAILY [facility] Last Admin: 09/14/19 10:07 Dose: 500 mg Documented by: Clopidogrel Bisulfate (Plavix) 75 mg PO QDAY [facility] Last Admin: 09/14/19 10:07 Dose: 75 mg Documented by: Docusate Sodium (Colace) 100 mg PO BID [facility] Last Admin: 09/14/19 10:08 Dose: Not Given Documented by: Fluticasone Propionate (Flonase) 2 spray NS QDAY PRN PRN Reason: Allergy Symptoms Glucosamine/Chondroitin (Glucosamine-Chondroitin Cap) 1 cap PO DAILY [facility] Last Admin: 09/14/19 10:07 Dose: 1 cap Documented by: Hydromorphone HCl (Dilaudid) 0 mg IV Q4HP PRN; Protocol PRN Reason: Per Pain Protocol Magnesium Sulfate (Magnesium Sulfate) 2 gm in 50 mls @ 50 mls/hr IV UD PRN PRN Reason: MG = or < 1.7 Acetaminophen (Ofirmev) 650 mg in 65 mls @ 130 mls/hr IV Q6HP PRN; Protocol PRN Reason: Per Pain Protocol/Fever > 101 Last Infusion: 09/12/19 22:42 Dose: Infused Documented by: Iron Carb/Multivit/[place]/Folic Acid (Multivitamin W/Minerals) 1 tab PO DAILY [facility] Last Admin: 09/14/19 10:07 Dose: 1 tab Documented by: Lactobacillus Rhamnosus (Culturelle) 1 cap PO QDAY [facility] Last Admin: 09/14/19 10:07 Dose: 1 cap Documented by: Losartan Potassium (Cozaar) 25 mg PO DAILY [facility] Last Admin: 09/14/19 10:06 Dose: 25 mg Documented by: Melatonin (Melatonin 3mg Tablet) 3 mg PO HSP PRN PRN Reason: Insomnia Multivitamins/Minerals (Ocuvite) 1 tab PO DAILY [facility] Last Admin: 09/14/19 10:07 Dose: 1 tab Documented by: Ondansetron HCl (Zofran Odt) 4 mg SL Q4-6HP PRN; Protocol PRN Reason: Nausea And Vomiting Ondansetron HCl (Zofran) 4 mg IV Q4-6HP PRN; Protocol PRN Reason: Nausea And Vomiting Oxycodone/Acetaminophen (Percocet 5-325 Mg) 0 tab PO Q4HP PRN; Protocol PRN Reason: Per Pain Protocol Pantoprazole Sodium (Protonix) 40 mg PO QAMAC [facility] Last Admin: 09/14/19 08:22 Dose: 40 mg Documented by: Polyethylene Glycol (Miralax) 17 gm PO DAILYP PRN PRN Reason: Constipation Potassium Chloride (Klor-Con) 40 meq PO DAILYP PRN PRN Reason: K+ < 3.5 Scopolamine (Transderm-Scop) 1 patch TOPICAL PREOP PRN PRN Reason: Nausea And Vomiting Senna/Docusate Sodium (Senna Plus Tablet) 1 tab PO HS [facility] Last Admin: 09/13/19 21:28 Dose: Not Given Documented by: Simvastatin (Zocor) 20 mg PO Q48@2100 [facility] Last Admin: 09/12/19 20:47 Dose: 20 mg Documented by: Sodium Chloride (Saline Flush) 10 ml IV Q8 [facility] Last Admin: 09/14/19 05:08 Dose: 10 ml Documented by: Sodium Chloride (Saline Flush) 10 ml IV Q12 [facility] Last Admin: 09/14/19 10:09 Dose: Not Given Documented by: Throat Lozenges (Cepacol) 1 lozenge PO PRN PRN PRN Reason: Sore Throat Last Admin: 09/12/19 22:12 Dose: 1 lozenge Documented by: Triamterene/HCTZ (Maxzide 25) 1 cap PO DAILYP PRN PRN Reason: weight gain Venlafaxine HCl (Effexor Xr) 75 mg PO QAM [facility] Last Admin: 09/14/19 10:07 Dose: 75 mg Documented by: A/P Narrative A/P Narrative: * Left hip fracture-postop day 2 managed by orthopedics * Postop pain well controlled * History of CVA continue aspirin Plavix/statin * 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
[2019-09-14 10:30] LABS: Anisocytosis 1+ (NONE SEEN); Hypochromasia 1+ (NONE SEEN); Lymphocytes % 20 % (15-49); Macrocytosis 1+ (NONE SEEN); Monocytes % (Manual) 14 % (1-12); Myelocytes % 1 % (0-0); Platelet Estimate NORMAL (NORMAL); RBC Morphology ABNORM (NORMAL); Segmented Neutrophils % 65 % (38-78)
--- NOTE | 2019-09-14 11:25 | Orthopedic Progress Note ---
SUBJECTIVE Subjective Patient information: Note initiated : 09/14/19 at 11:23 am Service Date, if different from initiated Date: [] Patient: Rika Martinez 69 y/o F admitted on 09/12/19 for Fall. Chief Complaint: mild/moderate pain with weight bearing. Otherwise no complaints. Interval history: Narrative: Constitutional Vitals: Vital Signs nvi-distal Temp Pulse Resp BP Pulse Ox 98.2 F 92 H 16 131/77 94 09/14/19 08:30 09/14/19 08:30 09/14/19 08:30 09/14/19 08:30 09/14/19 08:30 Period Temp Pulse Resp BP Sys/Lozano Pulse Ox Last 24 Hr 98.2 F-99.0 F 75-104 16-18 111-133/55-77 85-95 Intake and Output 09/13/19 09/14/19 09/14/19 21:59 05:59 13:59 Intake Total 540 240 Output Total 350 900 600 Balance 190 -900 -360 Weight 200 lb Intake & Output: Intake & Output 09/13/19 09/14/19 09/14/19 21:59 05:59 13:59 Intake Total 540 240 Output Total 350 900 600 Balance 190 -900 -360 Weight 200 lb Intake: Oral 540 240 Output: Void Amount 350 900 600 Other: Meal Dinner Percent of Meal Consumed 100% 100% Feeding Ability Independent Urine Appearance Clear Urine Color Dark Yellow Urine Odor Normal # Voids 1 # Bowel Movements 0 OBJ DATA Labs CBC & Chem 7: 09/14/19 05:10 09/14/19 05:10 Labs: Abnormal Lab Results 09/14/19 09/14/19 09/13/19 05:10 05:10 05:20 WBC RBC 3.06 L Hgb 9.6 L Hct 30.9 L MCV 101.0 H MCHC RDW 15.2 H Gran % Lymph % (Auto) Gran # Lymph # (Auto) Lane # (Auto) Seg Neutrophils % Lymphocytes % Monocytes % (Manual) 14 H Myelocytes % 1 H RBC Morphology Abnorm A Hypochromasia 1+ A Anisocytosis 1+ A Macrocytosis 1+ A Glucose 108 H POC Glucose Calcium 8.3 L 8.4 L Total Protein 5.4 L Globulin 1.9 L 2.1 L 09/13/19 09/12/19 09/12/19 05:20 08:16 08:16 WBC 19.6 H RBC 3.24 L Hgb 10.2 L Hct 33.2 L MCV 102.5 H MCHC 30.7 L RDW 15.1 H Gran % 90.3 H Lymph % (Auto) 3.9 L Gran # 17.66 H Lymph # (Auto) 0.[address] # (Auto) 1.12 H Seg Neutrophils % 81 H Lymphocytes % 12 L Monocytes % (Manual) Myelocytes % RBC Morphology Hypochromasia Anisocytosis 1+ A Macrocytosis 1+ A Glucose 114 H POC Glucose Calcium Total Protein Globulin 09/12/19 08:16 WBC RBC Hgb Hct MCV MCHC RDW Gran % Lymph % (Auto) Gran # Lymph # (Auto) Lane # (Auto) Seg Neutrophils % Lymphocytes % Monocytes % (Manual) Myelocytes % RBC Morphology Hypochromasia Anisocytosis Macrocytosis Glucose POC Glucose 114 H Calcium Total Protein Globulin Meds: Medications Acetaminophen (Tylenol) 650 mg PO Q4-6HP PRN; Protocol PRN Reason: Per Pain Protocol/Fever > 101 Last Admin: 09/14/19 10:12 Dose: 650 mg Documented by: Ascorbic Acid (Vitamin C) 1,500 mg PO QDAY [facility] Last Admin: 09/14/19 10:07 Dose: 1,500 mg Documented by: Aspirin (Aspirin) 81 mg PO DAILY [facility] Last Admin: 09/14/19 10:08 Dose: 81 mg Documented by: Baclofen (Lioresal) 20 mg PO 5XD [facility] Last Admin: 09/14/19 08:22 Dose: 20 mg Documented by: Bisacodyl (Dulcolax) 10 mg [place] Q2-3DAYS PRN PRN Reason: Constipation Calcium/Vitamin D (Calcium W/Vit D3) 500 mg PO DAILY [facility] Last Admin: 09/14/19 10:07 Dose: 500 mg Documented by: Clopidogrel Bisulfate (Plavix) 75 mg PO QDAY [facility] Last Admin: 09/14/19 10:07 Dose: 75 mg Documented by: Docusate Sodium (Colace) 100 mg PO BID [facility] Last Admin: 09/14/19 10:08 Dose: Not Given Documented by: Fluticasone Propionate (Flonase) 2 spray NS QDAY PRN PRN Reason: Allergy Symptoms Glucosamine/Chondroitin (Glucosamine-Chondroitin Cap) 1 cap PO DAILY [facility] Last Admin: 09/14/19 10:07 Dose: 1 cap Documented by: Hydromorphone HCl (Dilaudid) 0 mg IV Q4HP PRN; Protocol PRN Reason: Per Pain Protocol Magnesium Sulfate (Magnesium Sulfate) 2 gm in 50 mls @ 50 mls/hr IV UD PRN PRN Reason: MG = or < 1.7 Acetaminophen (Ofirmev) 650 mg in 65 mls @ 130 mls/hr IV Q6HP PRN; Protocol PRN Reason: Per Pain Protocol/Fever > 101 Last Infusion: 09/12/19 22:42 Dose: Infused Documented by: Iron Carb/Multivit/[place]/Folic Acid (Multivitamin W/Minerals) 1 tab PO DAILY [facility] Last Admin: 09/14/19 10:07 Dose: 1 tab Documented by: Lactobacillus Rhamnosus (Culturelle) 1 cap PO QDAY [facility] Last Admin: 09/14/19 10:07 Dose: 1 cap Documented by: Losartan Potassium (Cozaar) 25 mg PO DAILY [facility] Last Admin: 09/14/19 10:06 Dose: 25 mg Documented by: Melatonin (Melatonin 3mg Tablet) 3 mg PO HSP PRN PRN Reason: Insomnia Multivitamins/Minerals (Ocuvite) 1 tab PO DAILY [facility] Last Admin: 09/14/19 10:07 Dose: 1 tab Documented by: Ondansetron HCl (Zofran Odt) 4 mg SL Q4-6HP PRN; Protocol PRN Reason: Nausea And Vomiting Ondansetron HCl (Zofran) 4 mg IV Q4-6HP PRN; Protocol PRN Reason: Nausea And Vomiting Oxycodone/Acetaminophen (Percocet 5-325 Mg) 0 tab PO Q4HP PRN; Protocol PRN Reason: Per Pain Protocol Pantoprazole Sodium (Protonix) 40 mg PO QAMAC [facility] Last Admin: 09/14/19 08:22 Dose: 40 mg Documented by: Polyethylene Glycol (Miralax) 17 gm PO DAILYP PRN PRN Reason: Constipation Potassium Chloride (Klor-Con) 40 meq PO DAILYP PRN PRN Reason: K+ < 3.5 Scopolamine (Transderm-Scop) 1 patch TOPICAL PREOP PRN PRN Reason: Nausea And Vomiting Senna/Docusate Sodium (Senna Plus Tablet) 1 tab PO HS [facility] Last Admin: 09/13/19 21:28 Dose: Not Given Documented by: Simvastatin (Zocor) 20 mg PO Q48@2100 [facility] Last Admin: 09/12/19 20:47 Dose: 20 mg Documented by: Sodium Chloride (Saline Flush) 10 ml IV Q8 [facility] Last Admin: 09/14/19 05:08 Dose: 10 ml Documented by: Sodium Chloride (Saline Flush) 10 ml IV Q12 [facility] Last Admin: 09/14/19 10:09 Dose: Not Given Documented by: Throat Lozenges (Cepacol) 1 lozenge PO PRN PRN PRN Reason: Sore Throat Last Admin: 09/12/19 22:12 Dose: 1 lozenge Documented by: Triamterene/HCTZ (Maxzide 25) 1 cap PO DAILYP PRN PRN Reason: weight gain Venlafaxine HCl (Effexor Xr) 75 mg PO QAM [facility] Last Admin: 09/14/19 10:07 Dose: 75 mg Documented by: A/P Time Spent With Patient Time: Total time spent is greater than 50% in coordination of care (as documented) at patient's floor/unit and/or counseling patient: Mobilize with PT Discharge to SNF Monday09/16/19
[2019-09-14] MEDS: SIMVASTATIN 20 MG TABLET PO SCH (20:02)
[2019-09-14] MEDS: SENNOSIDES/DOCUSATE SODIUM 1 TAB TABLET PO SCH (20:05)
[2019-09-15] MEDS: ACETAMINOPHEN 325 MG TABLET PO PRN ×2 (03:56→20:12)
[2019-09-15] MEDS: 0.9 % SODIUM CHLORIDE 10 ML SYRINGE IV SCH ×3 (05:59→20:11)
[2019-09-15 06:50] LABS: Hematocrit 30.6 % (34.1-44.9); Hemoglobin 9.4 g/dL (11.2-15.7); Mean Cell Volume 101.3 fL (80.0-100.0); Mean Corpuscular HGB Conc 30.7 g/dL (31.0-36.0); Mean Platelet Volume 9.7 fL (7.4-10.4); Platelet Count 285 K/mcL (140-440); RBC 3.02 M/mcL (3.59-5.38); Red Cell Distribution Width 14.8 % (11.5-14.5); WBC 5.2 K/mcL (4.50-11.00)
[2019-09-15 07:03] LABS: ALT/SGPT 22 U/l (0-40); AST/SGOT 21 U/l (0-37); Albumin 3.3 gm/dL (3.2-5.2); Albumin/Globulin Ratio 1.7 (1.0-2.3); Alkaline Phosphatase 50 U/L (39-117); Bilirubin,Direct < 0.2 mg/dL (0.0-0.3); Bilirubin,Total 0.4 mg/dL (0.0-1.0); Blood Urea Nitrogen 10 mg/dl (8-23); Calcium 8.4 mg/dl (8.6-10.4); Carbon Dioxide 26 mmol/L (22-30); Chloride 106 mmol/L (96-108); Glomerular Filtration Rate 90; Glucose 96 mg/dL (70-105); Lactate Dehydrogenase 242 U/L (94-250); Phosphorous 3.4 mg/dL (2.7-4.5); Triglycerides 99 mg/dl (<150)
[2019-09-15] MEDS: PANTOPRAZOLE 40 MG TABLET PO SCH (07:29)
[2019-09-15] MEDS: BACLOFEN 10 MG TABLET PO SCH ×5 (07:29→20:11)
[2019-09-15] MEDS: oxyCODONE/APAP 5/325MG TABLET PO PRN ×2 (07:29→15:31)
--- NOTE | 2019-09-15 08:27 | Internal Med Progress Note ---
SUBJECTIVE Subjective Patient information: Note initiated : 09/15/19 at 8:24 am Service Date, if different from initiated Date: [] Patient: Rika Martinez a 69 y/o F admitted on 09/12/19 for Fall. Chief Complaint: History of present illness: Ms. Martinez is a 69 year old F with a known history of left-sided hemiparesis right MCA CVA/hypertension/HLD who presents to the ER following a fall 3 in the morning when she tripped on tile surface sustaining injury to her left hip. Initial work-up in the ER was consistent with left subcapital hip fracture. Orthopedics was consulted. Hospital service was requested for admission and management of medical issues while patient will undergo operative intervention At the time of evaluation patient is alert and oriented. She denies active distress. Pain well controlled. She denies losing consciousness or lightheadedness dizziness prior to fall. She denies recent hospitalization. She is currently on aspirin Plavix for history of an right MCA CVA 9 years ago with residual deficits left side. She denies diarrhea, fever, chest pain, shortness of breath or recent bleeding. She follows up with PCP Leon Zhou 09/12-patient doing well. No overnight events. No concerns per staff. No fever chills nausea vomiting. Pain good control. No significant postoperative site swelling. Hemoglobin stable at 10.2. Restart aspirin Plavix today. 09/13 pain good control. No overnight events. No concerns per staff. On home medications. Anticipate discharge to SNF on Monday. Case management coordinating. 09/14 -patient seen in room, no overnight events. No other concerns per nursing staff. Denies postoperative pain. Will likely transfer to [facility] in 24 hours. Ongoing PT OT/nutrition support. Interval history: Narrative: Constitutional Vitals: Vital Signs Temp Pulse Resp BP Pulse Ox 99.2 F H 92 H 16 140/80 97 09/15/19 07:30 09/15/19 04:00 09/15/19 07:30 09/15/19 07:30 09/15/19 07:30 Period Temp Pulse Resp BP Sys/Lozano Pulse Ox Last 24 Hr 98.0 F-99.2 F 88-96 16-20 117-145/63-81 88-97 Intake and Output 09/14/19 09/15/19 09/15/19 21:59 05:59 13:59 Intake Total 1300 280 Output Total 850 800 500 Balance 450 -520 -500 Weight 89.811 kg Alert oriented Nonlabored breathing No anxiety Intake & Output: Intake & Output 09/14/19 09/15/19 09/15/19 21:59 05:59 13:59 Intake Total 1300 280 Output Total 850 800 500 Balance 450 -520 -500 Weight 89.811 kg Intake: Oral 1300 280 Output: Void Amount 850 800 500 Other: Percent of Meal Consumed 100% Feeding Ability Independent Urine Appearance Clear Clear Urine Color Bright Yellow Straw Urine Odor Normal # Bowel Movements 0 OBJ DATA Labs CBC & Chem 7: 09/15/19 05:15 09/15/19 05:15 Labs: Abnormal Lab Results 09/15/19 09/15/19 09/14/19 05:15 05:15 05:10 WBC RBC 3.02 L Hgb 9.4 L Hct 30.6 L MCV 101.3 H MCHC 30.7 L RDW 14.8 H Gran % Lymph % (Auto) Gran # Lymph # (Auto) [place] # (Auto) Seg Neutrophils % Lymphocytes % Monocytes % (Manual) Myelocytes % RBC Morphology Hypochromasia Anisocytosis Macrocytosis Glucose POC Glucose Calcium 8.4 L 8.3 L Total Protein 5.3 L 5.4 L Globulin 2.0 L 1.9 L 09/14/19 09/13/19 09/13/19 05:10 05:20 05:20 WBC RBC 3.06 L 3.24 L Hgb 9.6 L 10.2 L Hct 30.9 L 33.2 L MCV 101.0 H 102.5 H MCHC 30.7 L RDW 15.2 H 15.1 H Gran % Lymph % (Auto) Gran # Lymph # (Auto) [place] # (Auto) Seg Neutrophils % 81 H Lymphocytes % 12 L Monocytes % (Manual) 14 H Myelocytes % 1 H RBC Morphology Abnorm A Hypochromasia 1+ A Anisocytosis 1+ A 1+ A Macrocytosis 1+ A 1+ A Glucose 108 H POC Glucose Calcium 8.4 L Total Protein Globulin 2.1 L 09/12/19 09/12/19 09/12/19 08:16 08:16 08:16 WBC 19.6 H RBC Hgb Hct MCV MCHC RDW Gran % 90.3 H Lymph % (Auto) 3.9 L Gran # 17.66 H Lymph # (Auto) 0.77 L [place] # (Auto) 1.12 H Seg Neutrophils % Lymphocytes % Monocytes % (Manual) Myelocytes % RBC Morphology Hypochromasia Anisocytosis Macrocytosis Glucose 114 H POC Glucose 114 H Calcium Total Protein Globulin Meds: Medications Acetaminophen (Tylenol) 650 mg PO Q4-6HP PRN; Protocol PRN Reason: Per Pain Protocol/Fever > 101 Last Admin: 09/15/19 03:56 Dose: 650 mg Documented by: Ascorbic Acid (Vitamin C) 1,500 mg PO QDAY [facility] Last Admin: 09/14/19 10:07 Dose: 1,500 mg Documented by: Aspirin (Aspirin) 81 mg PO DAILY [facility] Last Admin: 09/14/19 10:08 Dose: 81 mg Documented by: Baclofen (Lioresal) 20 mg PO 5XD [facility] Last Admin: 09/15/19 07:29 Dose: 20 mg Documented by: Bisacodyl (Dulcolax) 10 mg IA Q2-3DAYS PRN PRN Reason: Constipation Calcium/Vitamin D (Calcium W/Vit D3) 500 mg PO DAILY [facility] Last Admin: 09/14/19 10:07 Dose: 500 mg Documented by: Clopidogrel Bisulfate (Plavix) 75 mg PO QDAY [facility] Last Admin: 09/14/19 10:07 Dose: 75 mg Documented by: Docusate Sodium (Colace) 100 mg PO BID [facility] Last Admin: 09/14/19 20:05 Dose: Not Given Documented by: Fluticasone Propionate (Flonase) 2 spray NS QDAY PRN PRN Reason: Allergy Symptoms Glucosamine/Chondroitin (Glucosamine-Chondroitin Cap) 1 cap PO DAILY [facility] Last Admin: 09/14/19 10:07 Dose: 1 cap Documented by: Hydromorphone HCl (Dilaudid) 0 mg IV Q4HP PRN; Protocol PRN Reason: Per Pain Protocol Magnesium Sulfate (Magnesium Sulfate) 2 gm in 50 mls @ 50 mls/hr IV UD PRN PRN Reason: MG = or < 1.7 Acetaminophen (Ofirmev) 650 mg in 65 mls @ 130 mls/hr IV Q6HP PRN; Protocol PRN Reason: Per Pain Protocol/Fever > 101 Last Infusion: 09/12/19 22:42 Dose: Infused Documented by: Iron Carb/Multivit/[place]/Folic Acid (Multivitamin W/Minerals) 1 tab PO DAILY [facility] Last Admin: 09/14/19 10:07 Dose: 1 tab Documented by: Lactobacillus Rhamnosus (Culturelle) 1 cap PO QDAY [facility] Last Admin: 09/14/19 10:07 Dose: 1 cap Documented by: Losartan Potassium (Cozaar) 25 mg PO DAILY [facility] Last Admin: 09/14/19 10:06 Dose: 25 mg Documented by: Melatonin (Melatonin 3mg Tablet) 3 mg PO HSP PRN PRN Reason: Insomnia Multivitamins/Minerals (Ocuvite) 1 tab PO DAILY [facility] Last Admin: 09/14/19 10:07 Dose: 1 tab Documented by: Ondansetron HCl (Zofran Odt) 4 mg SL Q4-6HP PRN; Protocol PRN Reason: Nausea And Vomiting Ondansetron HCl (Zofran) 4 mg IV Q4-6HP PRN; Protocol PRN Reason: Nausea And Vomiting Oxycodone/Acetaminophen (Percocet 5-325 Mg) 0 tab PO Q4HP PRN; Protocol PRN Reason: Per Pain Protocol Last Admin: 09/15/19 07:29 Dose: 1 tab Documented by: Pantoprazole Sodium (Protonix) 40 mg PO QAMAC [facility] Last Admin: 09/15/19 07:29 Dose: 40 mg Documented by: Polyethylene Glycol (Miralax) 17 gm PO DAILYP PRN PRN Reason: Constipation Potassium Chloride (Klor-Con) 40 meq PO DAILYP PRN PRN Reason: K+ < 3.5 Scopolamine (Transderm-Scop) 1 patch TOPICAL PREOP PRN PRN Reason: Nausea And Vomiting Senna/Docusate Sodium (Senna Plus Tablet) 1 tab PO HS [facility] Last Admin: 09/14/19 20:05 Dose: Not Given Documented by: Simvastatin (Zocor) 20 mg PO Q48@2100 [facility] Last Admin: 09/14/19 20:02 Dose: 20 mg Documented by: Sodium Chloride (Saline Flush) 10 ml IV Q8 [facility] Last Admin: 09/15/19 05:59 Dose: 10 ml Documented by: Throat Lozenges (Cepacol) 1 lozenge PO PRN PRN PRN Reason: Sore Throat Last Admin: 09/12/19 22:12 Dose: 1 lozenge Documented by: Triamterene/HCTZ (Maxzide 25) 1 cap PO DAILYP PRN PRN Reason: weight gain Venlafaxine HCl (Effexor Xr) 75 mg PO QAM [facility] Last Admin: 09/14/19 10:07 Dose: 75 mg Documented by: A/P Narrative A/P Narrative: * Left hip fracture-postop day 3 managed by orthopedics. 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
[2019-09-15] MEDS: ASCORBIC ACID 500 MG TABLET PO SCH (08:56)
[2019-09-15] MEDS: VIT A,C & E/LUTEIN/MINERALS TABLET PO SCH (08:57)
[2019-09-15] MEDS: CALCIUM W/VIT D3 500 MG TABLET PO SCH (08:57)
[2019-09-15] MEDS: LOSARTAN 25 MG TABLET PO SCH (08:57)
[2019-09-15] MEDS: GLUCOSAMINE/CHONDROITIN SULF A 1 CAP CAPSULE PO SCH (08:57)
[2019-09-15] MEDS: MULTIVIT,THER IRON,CA,FA & MIN 1 TABLET PO SCH (08:57)
[2019-09-15] MEDS: ASPIRIN 81 MG TAB.CHEW PO SCH (08:57)
[2019-09-15] MEDS: LACTOBACILLUS 1 CAPSULE PO SCH (08:58)
[2019-09-15] MEDS: CLOPIDOGREL 75 MG TABLET PO SCH (08:58)
[2019-09-15] MEDS: VENLAFAXINE 75 MG CAP.XL.24H PO SCH (08:58)
[2019-09-15] MEDS: DOCUSATE SODIUM 100 MG CAPSULE PO SCH ×2 (09:01→20:12)
[2019-09-15 09:38] LABS: Anisocytosis 1+ (NONE SEEN); Eosinophils % (Manual) 4 % (0-7); Hypochromasia 1+ (NONE SEEN); Lymphocytes % 26 % (15-49); Macrocytosis 1+ (NONE SEEN); Monocytes % (Manual) 6 % (1-12); Platelet Estimate NORMAL (NORMAL); RBC Morphology ABNORM (NORMAL); Segmented Neutrophils % 64 % (38-78)
[2019-09-15] MEDS: SENNOSIDES/DOCUSATE SODIUM 1 TAB TABLET PO SCH (20:12)
[2019-09-16] MEDS: ACETAMINOPHEN 325 MG TABLET PO PRN ×3 (01:37→12:33)
[2019-09-16] MEDS: 0.9 % SODIUM CHLORIDE 10 ML SYRINGE IV SCH (05:12)
[2019-09-16 06:31] LABS: Hematocrit 31.4 % (34.1-44.9); Hemoglobin 9.9 g/dL (11.2-15.7); Mean Corpuscular HGB Conc 31.5 g/dL (31.0-36.0); Mean Platelet Volume 9.5 fL (7.4-10.4); Platelet Count 308 K/mcL (140-440); RBC 3.14 M/mcL (3.59-5.38); Red Cell Distribution Width 14.5 % (11.5-14.5); WBC 5.2 K/mcL (4.50-11.00)
[2019-09-16 07:15] LABS: ALT/SGPT 24 U/l (0-40); AST/SGOT 22 U/l (0-37); Albumin 3.7 gm/dL (3.2-5.2); Albumin/Globulin Ratio 1.6 (1.0-2.3); Alkaline Phosphatase 59 U/L (39-117); Bilirubin,Direct < 0.2 mg/dL (0.0-0.3); Bilirubin,Total 0.6 mg/dL (0.0-1.0); Blood Urea Nitrogen 8 mg/dl (8-23); Calcium 8.6 mg/dl (8.6-10.4); Carbon Dioxide 24 mmol/L (22-30); Chloride 103 mmol/L (96-108); Globulin 2.3 gm/dL (2.2-3.7); Glomerular Filtration Rate 94; Glucose 104 mg/dL (70-105); Lactate Dehydrogenase 241 U/L (94-250); Phosphorous 3.5 mg/dL (2.7-4.5); Triglycerides 97 mg/dl (<150); Uric Acid 3.9 mg/dL (2.5-8.0)
[2019-09-16] MEDS: BACLOFEN 10 MG TABLET PO SCH ×3 (07:41→13:25)
[2019-09-16] MEDS: PANTOPRAZOLE 40 MG TABLET PO SCH (07:41)
[2019-09-16 08:24] LABS: Eosinophils % (Manual) 5 % (0-7); Lymphocytes % 26 % (15-49); Monocytes % (Manual) 10 % (1-12); Platelet Estimate NORMAL (NORMAL); RBC Morphology NORMAL (NORMAL); Segmented Neutrophils % 59 % (38-78)
[2019-09-16] MEDS ORDERED: POTASSIUM CHLORIDE 20 MEQ TABLET PO ONE (09:00)
--- NOTE | 2019-09-16 09:58 | Discharge Summary ---
Discharge Provider Provider Patient information: Note initiated : 09/16/19 at 9:56 am Service Date, if different from initiated Date: [] Patient: Rika Martinez 69 y/o F admitted on 09/12/19 for Fall. Chief Complaint: [] Date of admission: 09/12/19 10:59 Discharge date: 09/16/19 Primary care physician: Leon Medley DO Consults: 09/12/19 Consult to Physician [CONS] Stat Comment: Consulting Provider: Del Cavanaugh Reason For Exam: Physician to Consult Consult to Physician [CONS] Stat Comment: Consulting Provider: Cyril Sullivan Reason For Exam: Physician to Consult 09/13/19 13:15 Consult to Physician [CONS] Routine Comment: Consulting Provider: Leon Laguerre Reason For Exam: Physician to Consult Discharge Meds Discharge Medications Home Medications ascorbate calcium (vitamin C) 500 mg tablet 1,500 mg PO QDAY tab 12/03/14 [History Confirmed 09/12/19 Last Taken Unknown] aspirin 81 mg tablet,delayed release 81 mg PO QDAY 12/03/14 [History Confirmed 09/12/19 Last Taken Unknown] calcium carbonate 600 mg (1,500 mg)-vitamin D3 500 unit capsule 1 cap PO DAILY 12/03/14 [History Confirmed 09/12/19 Last Taken Unknown] onabotulinumtoxinA IM 12/03/14 [History Confirmed 08/27/19 Last Taken 09/03/19] triamterene 75 mg-hydrochlorothiazide 50 mg tablet 0.5 tab PO QDAY PRN #45 tab 09/24/18 [Rx Confirmed 09/12/19 Last Taken Unknown] wcpzvryogul-ndcbnbqnu-lwuj257-hyal 750 mg-100 mg-125 mg-1.65 mg tablet 1 tab PO DAILY 12/17/18 [History Confirmed 09/12/19 Last Taken Unknown] lactobacillus combination no.8 3 billion cell capsule 3,000 mmu cells PO QDAY 12/17/18 [History Confirmed 09/12/19 Last Taken Unknown] losartan 50 mg tablet 25 mg PO QDAY tab 12/17/18 [History Confirmed 09/12/19 Last Taken Unknown] lutein 25 mg-zeaxanthin 5 mg capsule 1 cap PO QDAY cap 12/17/18 [History Confirmed 09/12/19 Last Taken Unknown] clopidogrel 75 mg tablet 75 mg PO QDAY #90 tab 03/11/19 [Rx Confirmed 09/12/19 Last Taken Unknown] venlafaxine 75 mg capsule,extended release 24 hr 75 mg PO QAM #90 cap 04/16/19 [Rx Confirmed 09/12/19 Last Taken Unknown] pantoprazole 40 mg tablet,delayed release 40 mg PO QAM #90 tab 06/06/19 [Rx Confirmed 09/12/19 Last Taken Unknown] rosuvastatin 5 mg tablet 5 mg PO .qod #45 tab 08/27/19 [Rx Confirmed 09/12/19 Last Taken Unknown] baclofen 20 mg PO .5X/DAY 09/12/19 [History Confirmed 09/12/19 Last Taken Unknown] fluticasone propionate [Flonase Allergy Relief] 2 spray INTRANASAL QDAY PRN 09/12/19 [History Confirmed 09/12/19 Last Taken Unknown] oxycodone-acetaminophen 1 tab PO Q4HP PRN #60 tab 09/13/19 [Rx Last Taken Unknown] COURSE Hospital Course Hospital Course: Discharge diagnosis Left hip fracture-postop day 4 managed by orthopedics. Patient doing well. Ongoing physical therapies. 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 Martinez is a 69 year old F with a known history of left-sided hemiparesis right MCA CVA/hypertension/HLD who presents to the ER following a fall 3 in the morning when she tripped on tile surface sustaining injury to her left hip. Initial work-up in the ER was consistent with left subcapital hip fracture. Orthopedics was consulted. Hospital service was requested for admission and management of medical issues while patient will undergo operative intervention At the time of evaluation patient is alert and oriented. She denies active distress. Pain well controlled. She denies losing consciousness or light headedness dizziness prior to fall. She denies recent hospitalization. She is currently on aspirin Plavix for history of an right MCA CVA 9 years ago with residual deficits left side. She denies diarrhea, fever, chest pain, shortness of breath or recent bleeding. She follows up with PCP Leon Zhou 09/12-patient doing well. No overnight events. No concerns per staff. No fever chills nausea vomiting. Pain good control. No significant postoperative site swelling. Hemoglobin stable at 10.2. Restart aspirin Plavix today. 09/13 pain good control. No overnight events. No concerns per staff. On home medications. Anticipate discharge to SNF on Monday. Case management coordinating. 09/14 -patient seen in room, no overnight events. No other concerns per nursing staff. Denies postoperative pain. Will likely transfer to [facility] in 24 hours. Ongoing PT OT/nutrition support. 09/15-patient discharging to SNF for continued posthospitalization rehab. Continue PT OT/outpatient follow-up with orthopedics. Discharge diagnosis: . Time Spent with Patient Time attestation: Total time spent providing and/or coordinating discharge services: Time spent: Greater than 30 minutes EXAM Constitutional Vitals: Temp Pulse Resp BP Pulse Ox 97.9 F 95 H 18 145/83 94 09/16/19 08:00 09/16/19 08:00 09/16/19 08:00 09/16/19 08:00 09/16/19 08:00 Discharge Data Data Completed and Pending Labs on day of discharge: Labs from last 24 hours 09/16/19 09/16/19 05:25 05:25 WBC 5.2 RBC 3.14 L Hgb 9.9 L Hct 31.4 L MCV 100.0 MCH 31.5 MCHC 31.5 RDW 14.5 Plt Count 308 MPV 9.5 Total Counted 100 Seg Neutrophils % 59 Band Neutrophils % Not Reportable Lymphocytes % 26 Monocytes % (Manual) 10 Eosinophils % (Manual) 5 Platelet Estimate Normal RBC Morphology Normal Sodium 140 Potassium 3.4 Chloride 103 Carbon Dioxide 24 Anion Gap 13.0 BUN 8 Creatinine 0.6 GFR Calculation 94 Glucose 104 Uric Acid 3.9 Calcium 8.6 Phosphorus 3.5 Magnesium 2.1 Total Bilirubin 0.6 Direct Bilirubin < 0.2 GGT 25 AST 22 ALT 24 Alkaline Phosphatase 59 Lactate Dehydrogenase 241 Total Protein 6.0 Albumin 3.7 Globulin 2.3 Albumin/Globulin Ratio 1.6 Triglycerides 97 Discharge Plan Patient/Caregiver Discharge Instructions Activity: increase activity as tolerated Diet: Regular Diet Instructions: Oxycodone/Acetaminophen (By mouth), ORIF of Hip Fracture (DC) Activity Restrictions/Additional Instructions: Discharge Instructions: Do the exercises at home that physical therapy gave you. Weight bearing as tolerated. Wear comfortable clothing for physical therapy. You will need to call [facility] ([phone]) on MondaySeptember 15 to schedule an appointment to start physical therapy. Take your prescription, photo ID, insurance cards, and current medication list with you to your first physical therapy appointment. Take your prescription to pickle water pump operator any medication or equipment (such as walker, crutches, toilet riser or C.P.M.) You can pickle water pump operator your walker and bath bench at [facility] ([phone]). You have the silver dressing, leave in place for 7-14 days then remove. If dressing becomes soiled (turns black), remove and use gauze 4x4 dressing and antimicrobial silver ointment ([id number]) and change daily. You may shower with dressing on. Pat dry after shower. Your prescriptions are with your discharge information. Some medications were electronically transmitted to your pharmacy of choice. To avoid constipation while taking any narcotic pain medication, take an over the counter stool softener/laxative. Take Aspirin as prescribed to prevent blood clots (see medication list). Use ice packs as directed, on for 20 minutes at a time, throughout the day. Ice and elevation will help with pain and swelling. If you have any questions or concerns call your orthopedic surgeon before going to the emergency room. [facility] has a engineer station mainline physician 24 hours per day/7 days per week and can be reached at [phone]. Call for fevers above 100.5 or pain not controlled by medication. This discharge packet is provided to you to help keep you informed about your care. We want to ensure you get everything you need when you go home. You will also be receiving a call from us in a few days to follow up with you and see how you are doing since your discharge. This gives us a chance to listen to any concerns you maybe experiencing since you were discharged or any additional needs you may have, as well as providing us feedback on your care experience. We strive to always provide excellent care and thank you for your feedback and for choosing [facility]. Prescriptions: New oxycodone-acetaminophen 5-325 mg Tablet 1 tab PO Q4HP PRN (Reason: Per Pain Protocol) Qty: 60 RF: 0 Continued triamterene-hydrochlorothiazid 75-50 mg tablet 0.5 tab PO QDAY PRN (Reason: weight gain) Qty: 45 RF: 0 clopidogrel 75 mg tablet 75 mg PO QDAY Qty: 90 RF: 3 venlafaxine 75 mg capsule,extended release 24hr 75 mg PO QAM Qty: 90 RF: 3 pantoprazole 40 mg tablet,delayed release (DR/EC) 40 mg PO QAM Qty: 90 RF: 3 aspirin 81 mg tablet,delayed release (DR/EC) 81 mg PO QDAY RF: 0 ascorbate calcium (vitamin C) 500 mg tablet 1,500 mg PO QDAY RF: 0 Botox IM RF: 0 calcium carbonate-vitamin D3 600 mg(1,500mg) -500 unit capsule 1 cap PO DAILY RF: 0 losartan 50 mg tablet 25 mg PO QDAY RF: 0 Hold Instructions: Doctor's Order lactobacillus combination no.8 3 billion cell capsule 3 billion cell capsule 3,000 mmu cells PO QDAY RF: 0 Glucos Chond Cplx Advanced 750 mg-100 mg- 125 mg-1.65 mg tablet 1 tab PO DAILY RF: 0 lutein-zeaxanthin [Ocuvite Lutein 25] 25-5 mg capsule 1 cap PO QDAY RF: 0 rosuvastatin 5 mg tablet 5 mg PO .qod Qty: 45 RF: 3 baclofen 20 mg tablet 20 mg PO .5X/DAY RF: 0 fluticasone propionate [Flonase Allergy Relief] 50 mcg/actuation spray,suspension 2 spray INTRANASAL QDAY PRN (Reason: Allergy Symptoms) RF: 0 Other Ambulatory Orders: Physical Therapy DC - General (Routine) Location: None Selected Ordered By: Cyril Sullivan Shower Seat/Bench Discharge order (ONCE) Location: None Selected Ordered By: Cyril Sullivan Walker (ONCE) Location: None Selected Ordered By: Cyril Sullivan Follow Up Plan Follow up with: Cyril Sullivan MD [Physician] - (Please call MondaySeptember 15 and schedule a surgical follow up to be seen in 10-14 days.) Leon Medley DO [Primary Care Provider] - Patient Disposition: Home, Self-Care Prognosis: Fair Rehab Potential: Fair Discharge Orders: Discharge Order (Routine); Ordered 09/13/19 Ordered By: Cyril J [place] QUALITY VTE Deep Vein Thrombosis/Pulmonary Embolism Present on Admission: No
[2019-09-16] MEDS: VENLAFAXINE 75 MG CAP.XL.24H PO SCH (10:33)
[2019-09-16] MEDS: MULTIVIT,THER IRON,CA,FA & MIN 1 TABLET PO SCH (10:33)
[2019-09-16] MEDS: LACTOBACILLUS 1 CAPSULE PO SCH (10:33)
[2019-09-16] MEDS: CALCIUM W/VIT D3 500 MG TABLET PO SCH (10:38)
[2019-09-16] MEDS: DOCUSATE SODIUM 100 MG CAPSULE PO SCH (10:38)
[2019-09-16] MEDS: LOSARTAN 25 MG TABLET PO SCH (10:38)
[2019-09-16] MEDS: ASPIRIN 81 MG TAB.CHEW PO SCH (10:38)
[2019-09-16] MEDS: GLUCOSAMINE/CHONDROITIN SULF A 1 CAP CAPSULE PO SCH (10:39)
[2019-09-16] MEDS: VIT A,C & E/LUTEIN/MINERALS TABLET PO SCH (10:40)
[2019-09-16] MEDS: ASCORBIC ACID 500 MG TABLET PO SCH (10:40)
[2019-09-16] MEDS: CLOPIDOGREL 75 MG TABLET PO SCH (10:40)
== END 2019-09-16 13:40 | DRG 481 ==
LOC: ED 06:35 → MEDSUR 10:59
PROVIDERS: ADMIT Internal Medicine; ATTEND Internal Medicine